=== PATIENT | male | born 1955 | race Caucasian/White ===

== ENCOUNTER 2019-06-17 10:58 | Emergency (ER) | payer BC, SELFPAY ==
[2019-06-17 11:08] VITALS: BP 154/86; PULSE 67; RESP 18; TEMP 36.5; O2SAT 100
--- NOTE | 2019-06-17 11:09 | ED.CHESTPAIN ---
HPI - Chest Pain <Shruthi Lois, DO - Last Filed: 06/22/19 07:51> General Chief Complaint: Chest Pain Stated Complaint: HEART DEFIB WENT OFF Time Seen by Provider: 06/17/19 11:09 Source: patient Mode of arrival: ambulatory Limitations: no limitations History of Present Illness HPI narrative: Patient is a 63-year-old male with history of Lyme disease CHF in and diabetes presenting after his defibrillator went off. He thinks it went off yesterday but not really sure but definitely at 3:00 a.m. he felt a severe shock go from fingertip to finger tip. He said he woke up and was not feeling quite right he felt his pulse and thought it was irregular and then he was being shocked. It did not shock him on again on he the emergency department now for evaluation. He comes no chest pain no shortness of breath no heart palpitations dizziness or lightheadedness. Related Data Home Medications Medication Instructions Recorded Confirmed acetaminophen 500 mg PO Q4H PRN 06/17/19 06/17/19 ascorbate calcium (vitamin C) 500 mg PO DAILY 06/17/19 06/17/19 carvedilol 50 mg PO DAILY 06/17/19 06/17/19 cholecalciferol (vitamin D3) 5,000 unit PO DAILY 06/17/19 06/17/19 [Vitamin D3] coenzyme Q10 200 mg PO DAILY 06/17/19 06/17/19 cyanocobalamin (vitamin B-12) 2,500 mcg SUBLINGUAL DAILY 06/17/19 06/17/19 [Vitamin B-12] duloxetine 60 mg PO DAILY 06/17/19 06/17/19 furosemide 40 mg PO DAILY 06/17/19 06/17/19 gabapentin 1 - 3 tab PO BEDTIME 06/17/19 06/17/19 insulin aspart U-100 [Novolog See Rx Instructions .ROUTE .COMPLEX 06/17/19 06/17/19 Flexpen U-100 Insulin] insulin degludec [Tresiba 10 - 20 unit SUBCUT DAILY 06/17/19 06/17/19 FlexTouch U-200] insulin glargine [Lantus Solostar See Rx Instructions .ROUTE .COMPLEX 06/17/19 06/17/19 U-100 Insulin] lactobacillus comb no.10 20,000 mmu cells PO DAILY 06/17/19 06/17/19 [Probiotic] levocarnitine HCl (bulk) 500 mg DAILY 06/17/19 06/17/19 [Vfgfdf-L-Aibikjhlr] losartan 25 mg PO DAILY 06/17/19 06/17/19 magnesium 250 mg PO DAILY 06/17/19 06/17/19 melatonin 5 mg PO BEDTIME PRN 06/17/19 06/17/19 metaxalone 800 mg PO BID 06/17/19 06/17/19 metformin 2,000 mg PO DAILY 06/17/19 06/17/19 niacin 250 mg PO DAILY 06/17/19 06/17/19 omega 7-shb-lfm-fish oil [Fish Oil] 1 cap PO DAILY 06/17/19 06/17/19 spironolactone 25 mg PO DAILY 06/17/19 06/17/19 thyroid (pork) [CATERING SOUS CHEF Thyroid] 60 mg PO DAILY 06/17/19 06/17/19 vitamin A 10,000 unit PO DAILY 06/17/19 06/17/19 vitamin B complex [B-Complex] 1 tab PO DAILY 06/17/19 06/17/19 Previous Rx's Medication Instructions Recorded clonazepam [Klonopin] 2 mg PO .QHS #6 tab 06/17/19 Allergies Allergy/AdvReac Type Severity Reaction Status Date / Time sulfamethoxazole Allergy Unknown Unverified 03/02/18 11:45 [From BACTRIM] trimethoprim [From BACTRIM] Allergy Unknown Unverified 03/02/18 11:45 Review of Systems <Shruthi Abreu, - Last Filed: 06/22/19 07:51> Review of Systems GENERAL: Denies chills, fatigue, malaise, fever, sweats, travel HEENT: Denies sinus pain, ear pain, sore throat, difficulty swallowing, neck pain RESPIRATORY: Denies dyspnea, cough, wheezing, hemoptysis, sputum. CARDIOVASCULAR: See HPI GASTROINTESTINAL: Denies nausea, vomiting, abdominal pain, diarrhea, constipation, melena. : Denies dysuria, frequency, incontinence, hematuria, urinary retention, flank pain. MUSCULOSKELETAL: Denies weakness, joint pain, or bony pain SKIN: No rash, no erythema, no pruritus NEUROLOGIC: Denies weakness, dizziness, headache, numbness, change in speech, confusion PSYCHIATRIC: No concerning psychosocial issues. 12 point review of systems is negative except for those stated above and HPI PFSH <Shruthi Abreu DO - Last Filed: 06/22/19 07:51> Medical History CHF (congestive heart failure) (Acute) Diabetes (Acute) Lyme disease (Acute) Social History (Updated 06/17/19 @ 19:20 by Shruthi Abreu DO) marital status: household members: spouse Smoking Status: Never smoker Social History marital status: household members: spouse Smoking Status: Never smoker Exam <DO Dari Pacheco Last Filed: 06/22/19 07:51> Initial Vital Signs Initial Vital Signs: Vital Signs Temperature 97.7 F 06/17/19 11:08 Pulse Rate 67 06/17/19 11:08 Respiratory Rate 18 06/17/19 11:08 Blood Pressure 154/86 H 06/17/19 11:08 Pulse Oximetry 100 06/17/19 11:08 GENERAL: Well-appearing, well-nourished and in no acute distress. HEENT: Head atraumatic,EOMI, pupils reactive, face symmetric, moist mucous membranes CARDIOVASCULAR: Regular rate and rhythm without murmurs, rubs or gallops. RESPIRATORY: Breath sounds equal bilaterally, no wheezes rales or rhonchi. ABDOMEN: Soft, nontender. Normoactive bowel sounds all 4 quadrants. No guarding or rebound. EXTREMITIES: Normal range of motion, no clubbing or edema. Neurovascularly intact NEUROLOGICAL: Alert and oriented x4.Normal gait and speech. Cranial nerves II through XII grossly intact. SKIN: Warm, dry, no laceration, no petechiae, no rashes or lesions. <Von Burden DO - Last Filed: 06/17/19 23:53> Initial Vital Signs Initial Vital Signs: Vital Signs Temperature 97.7 F 06/17/19 11:08 Pulse Rate 67 06/17/19 11:08 Respiratory Rate 18 06/17/19 11:08 Blood Pressure 154/86 H 06/17/19 11:08 Pulse Oximetry 100 06/17/19 11:08 Course <Shruthi Abreu DO - Last Filed: 06/22/19 07:51> Orders Ordered: Discontinued Medications Clonazepam (Klonopin) 4 mg PO NOW ONE Stop: 06/17/19 21:23 Last Admin: 06/17/19 21:29 Dose: 4 mg Consultations Time: 12:41 Vital Signs - 8 hr 06/17/19 16:00 06/17/19 18:00 06/17/19 21:31 Pulse Rate 72 76 78 Respiratory Rate 14 14 12 Blood Pressure 168/74 H Blood Pressure [Right Arm] 156/83 H 146/76 H Pulse Oximetry 100 98 98 <Von Burden DO - Last Filed: 06/17/19 23:53> Orders Ordered: Discontinued Medications Clonazepam (Klonopin) 4 mg PO NOW ONE Stop: 06/17/19 21:23 Last Admin: 06/17/19 21:29 Dose: 4 mg Vital Signs - 8 hr 06/17/19 16:00 06/17/19 18:00 06/17/19 21:31 Pulse Rate 72 76 78 Respiratory Rate 14 14 12 Blood Pressure 168/74 H Blood Pressure [Right Arm] 156/83 H 146/76 H Pulse Oximetry 100 98 98 MDM - Chest Pain <Shruthi Abreu DO - Last Filed: 06/22/19 07:51> Lab Data Attestation: I reviewed the patient's lab results. Result diagrams: 06/17/19 11:10 06/17/19 11:10 Lab Results 06/17/19 06/17/19 06/17/19 Range/Units 11:10 11:10 11:10 WBC 6.0 (4.5-11.0) X10^3/uL RBC 4.80 (4.5-5.9) X10^6/uL Hgb 15.0 (13.5-17.5) g/dL Hct 43.1 (41-53) % MCV 89.9 (80-100) fL MCH 31.3 (26-34) PG MCHC 34.9 (30-36) % RDW 13.1 (11.6-14.8) % Plt Count 149 L (150-400) X10^3/uL Neut % (Auto) 42.6 L (50-75) % Lymph % (Auto) 44.5 H (25-40) % [place] % (Auto) 7.3 (3-14) % Eos % (Auto) 4.3 H (2-4) % Baso % (Auto) 1.3 (0-2) % Neut # (Auto) 2600 (8878-7622) /uL Lymph # (Auto) 2700 (5737-2518) /uL [place] # (Auto) 400 (0-900) /uL Eos # (Auto) 300 (0-450) /uL Baso # (Auto) 100 (0-100) /uL PT 12.2 (10.1-12.7) SECONDS INR 1.1 (0.9-1.3) APTT 36 (26.4-36.2) SECONDS Sodium 143 (137-145) mmol/L Potassium 4.2 (3.4-5.1) mmol/L Chloride 104 (98-107) mmol/L Carbon Dioxide 26 (22-32) mmol/L BUN 25 H (9-20) mg/dL Creatinine 1.10 (0.66-1.25) mg/dL Estimated GFR > 60.0 (>60) mL/min BUN/Creatinine Ratio 22.7 H (6-22) Glucose 136 H (80-110) mg/dL Calcium 10.2 (8.4-10.2) mg/dL Total Bilirubin 2.0 H (0.2-1.3) mg/dL AST 53 (17-59) IU/L ALT 49 (21-72) IU/L Alkaline Phosphatase 76 (38-126) U/L Total Creatine Kinase 203 H (55-170) U/L CK-MB (CK-2) 2.53 H (<2.37) ng/mL CK-MB (CK-2) Rel Index 1.2 L (1.5-5.0) % Troponin I < 0.012 (0.01-0.034) ng/mL Total Protein 8.4 H (6.3-8.2) g/dL Albumin 5.1 H (3.5-5.0) g/dL Globulin 3.3 (1.7-4.1) g/dL Albumin/Globulin Ratio 1.5 (1.0-2.8) Lipase 92 (23-300) U/L Imaging Data Chest x-ray: Radiologist's impression: PROCEDURE: XR CHEST 1V INDICATIONS: chest pain TECHNIQUE: One view of the chest was acquired. COMPARISON: None. FINDINGS: Surgical changes and devices: There is a single-lead cardiac defibrillator. Lungs and pleura: Lungs are clear. No pleural effusions or pneumothorax. Mediastinum: Mediastinal contours appear normal. Heart size is normal. Bones and chest wall: No suspicious bony lesions. Overlying soft tissues appear unremarkable. IMPRESSION: No acute cardiopulmonary findings. Dictated by: Abida Pedraza M.D. on 06/17/2019 at 10:27 ECG Data Attestation: I personally reviewed and interpreted this ECG as follows: Prior ECG tracings: not available for review Interpretation: Sinus rhythm rate [address] changes no T-wave inversions or priors to compare MDM Narrative Medical decision making narrative: I personally called [employer] and spoke to the rep requested interrogation. The rep requested that there be a cardiology consult. I spoke with Dr. Silverio, on-call cardiology who yes agrees with interrogation. If something is abnormal with interrogation he is happy to get involved. [employer] will not be here until 7:45 p.m. I have signed out to Dr. Burden for further management <Von Burden, DO - Last Filed: 06/17/19 23:53> Lab Data Lab Results 06/17/19 06/17/19 06/17/19 Range/Units 11:10 11:10 11:10 WBC 6.0 (4.5-11.0) X10^3/uL RBC 4.80 (4.5-5.9) X10^6/uL Hgb 15.0 (13.5-17.5) g/dL Hct 43.1 (41-53) % MCV 89.9 (80-100) fL MCH 31.3 (26-34) PG MCHC 34.9 (30-36) % RDW 13.1 (11.6-14.8) % Plt Count 149 L (150-400) X10^3/uL Neut % (Auto) 42.6 L (50-75) % Lymph % (Auto) 44.5 H (25-40) % [place] % (Auto) 7.3 (3-14) % Eos % (Auto) 4.3 H (2-4) % Baso % (Auto) 1.3 (0-2) % Neut # (Auto) 2600 (9037-3717) /uL Lymph # (Auto) 2700 (1232-8346) /uL [place] # (Auto) 400 (0-900) /uL Eos # (Auto) 300 (0-450) /uL Baso # (Auto) 100 (0-100) /uL PT 12.2 (10.1-12.7) SECONDS INR 1.1 (0.9-1.3) APTT 36 (26.4-36.2) SECONDS Sodium 143 (137-145) mmol/L Potassium 4.2 (3.4-5.1) mmol/L Chloride 104 (98-107) mmol/L Carbon Dioxide 26 (22-32) mmol/L BUN 25 H (9-20) mg/dL Creatinine 1.10 (0.66-1.25) mg/dL Estimated GFR > 60.0 (>60) mL/min BUN/Creatinine Ratio 22.7 H (6-22) Glucose 136 H (80-110) mg/dL Calcium 10.2 (8.4-10.2) mg/dL Total Bilirubin 2.0 H (0.2-1.3) mg/dL AST 53 (17-59) IU/L ALT 49 (21-72) IU/L Alkaline Phosphatase 76 (38-126) U/L Total Creatine Kinase 203 H (55-170) U/L CK-MB (CK-2) 2.53 H (<2.37) ng/mL CK-MB (CK-2) Rel Index 1.2 L (1.5-5.0) % Troponin I < 0.012 (0.01-0.034) ng/mL Total Protein 8.4 H (6.3-8.2) g/dL Albumin 5.1 H (3.5-5.0) g/dL Globulin 3.3 (1.7-4.1) g/dL Albumin/Globulin Ratio 1.5 (1.0-2.8) Lipase 92 (23-300) U/L MDM Narrative Medical decision making narrative: Received turned over from day provider. Reviewed his history and physical and labs. Performed my own independent exam. [employer] did eventually come to the emergency department and interrogate his pacemaker. He does have a VVI pacemaker. There were no reports of activations today. Will not change any of his medications. He was given a short course of Klonopin to help him sleep at night. He was given return precautions and follow-up instructions. Expressed understanding and agreement plan. Discharge Plan Departure Patient Disposition: Home Clinical Impression: Defibrillator discharge, Heart palpitations Discharge Date/Time: 06/17/19 21:32 Interventions: ED Discharge Assessment Last Done: 06/17/19 21:31 Instructions: DI for Automatic Cardioverter/Defibrillator Implantation Activity Restrictions/Additional Instructions: Continue all of your medications as directed. 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 Return to the emergency department for any new or worsening symptoms Prescriptions: New clonazepam [Klonopin] 2 mg tablet 2 mg PO .QHS Qty: 6 RF: 0 No Action furosemide 40 mg tablet 40 mg PO DAILY RF: 0 carvedilol 25 mg tablet 50 mg PO DAILY RF: 0 spironolactone 25 mg tablet 25 mg PO DAILY RF: 0 vitamin A 10,000 unit Capsule 10,000 unit PO DAILY RF: 0 metformin 1,000 mg tablet 2,000 mg PO DAILY RF: 0 losartan 25 mg tablet 25 mg PO DAILY RF: 0 metaxalone 800 mg tablet 800 mg PO BID RF: 0 Novolog Flexpen U-100 Insulin 100 unit/mL (3 mL) insulin pen See Rx Instructions .ROUTE .COMPLEX RF: 0 duloxetine 60 mg capsule,delayed release(DR/EC) 60 mg PO DAILY RF: 0 Lantus Solostar U-100 Insulin 100 unit/mL (3 mL) insulin pen See Rx Instructions .ROUTE .COMPLEX RF: 0 thyroid (pork) [CATERING SOUS CHEF Thyroid] 60 mg tablet 60 mg PO DAILY RF: 0 Tresiba FlexTouch U-200 200 unit/mL (3 mL) insulin pen 10 - 20 unit subcut DAILY RF: 0 cyanocobalamin (vitamin B-12) [Vitamin B-12] 2,500 mcg Tablet, Sublingual 2,500 mcg SUBLINGUAL DAILY RF: 0 gabapentin 800 mg tablet 1 - 3 tab PO BEDTIME RF: 0 ascorbate calcium (vitamin C) 500 mg Tablet 500 mg PO DAILY RF: 0 coenzyme Q10 200 mg Capsule 200 mg PO DAILY RF: 0 melatonin 5 mg Tablet 5 mg PO BEDTIME PRN (Reason: Sleep) RF: 0 cholecalciferol (vitamin D3) [Vitamin D3] 5,000 unit Tablet 5,000 unit PO DAILY RF: 0 vitamin B complex [B-Complex] Tablet 1 tab PO DAILY RF: 0 magnesium 250 mg Tablet 250 mg PO DAILY RF: 0 niacin 250 mg Tablet 250 mg PO DAILY RF: 0 acetaminophen 500 mg Capsule 500 mg PO Q4H PRN (Reason: Pain (Scale Score 4-6)) RF: 0 Lysjpt-P-Bvxwqwfbk Powder 500 mg DAILY RF: 0 omega 6-zpq-wso-fish oil [Fish Oil] 1,000 mg (120 mg-180 mg) Capsule 1 cap PO DAILY RF: 0 Probiotic 20 billion cell Capsule 20,000 mmu cells PO DAILY RF: 0
[2019-06-17 11:28] LABS: INR 1.1 (0.9-1.3); Prothrombin Time 12.2 SECONDS (10.1-12.7)
[2019-06-17 11:31] LABS: Alanine Aminotransferase 49 IU/L (21-72); Albumin 5.1 g/dL (3.5-5.0); Albumin Globulin Ratio 1.5 (1.0-2.8); Alkaline Phosphatase 76 U/L (38-126); Aspartate Aminotransferase 53 IU/L (17-59); BUN Creatinine Ratio 22.7 (6-22); Blood Urea Nitrogen 25 mg/dL (9-20); Calcium 10.2 mg/dL (8.4-10.2); Carbon Dioxide 26 mmol/L (22-32); Chloride 104 mmol/L (98-107); Creatine Kinase 203 U/L (55-170); Estimated Glomerular Filt Rate > 60.0 mL/min (>60); Globulin 3.3 g/dL (1.7-4.1); Glucose 136 mg/dL (80-110); HEMOLYSIS < 15 (0-50); Lipase 92 U/L (23-300); PTT Partial Thromboplastin Tim 36 SECONDS (26.4-36.2); Potassium 4.2 mmol/L (3.4-5.1); Sodium 143 mmol/L (137-145); Total Protein 8.4 g/dL (6.3-8.2)
[2019-06-17 11:37] LABS: Add Manual Diff / Slide Review NO; Basophils Absolute Auto 100 /uL (0-100); Basophils Percent Auto 1.3 % (0-2); Eosinophils Absolute Auto 300 /uL (0-450); Eosinophils Percent Auto 4.3 % (2-4); Hematocrit 43.1 % (41-53); Lymphocytes Absolute Auto 2700 /uL (1100-4500); Lymphocytes Percent Auto 44.5 % (25-40); Mean Corpuscular HGB Conc 34.9 % (30-36); Mean Corpuscular Hemoglobin 31.3 PG (26-34); Mean Corpuscular Volume 89.9 fL (80-100); Monocytes Absolute Auto 400 /uL (0-900); Monocytes Percent Auto 7.3 % (3-14); Neutrophils Absolute Auto 2600 /uL (1500-7000); Neutrophils Percent Auto 42.6 % (50-75); Platelet Count 149 X10^3/uL (150-400); Red Cell Distribution Width 13.1 % (11.6-14.8)
[2019-06-17 11:43] LABS: Troponin I < 0.012 ng/mL (0.01-0.034)
[2019-06-17 11:47] LABS: CKMB % Relative Index 1.2 % (1.5-5.0); Creatine Kinase MB 2.53 ng/mL (<2.37)
[2019-06-17 12:00] VITALS: BP 146/89; PULSE 60; RESP 17; O2SAT 100
--- NOTE | 2019-06-17 12:41 | ED_ITS ---
HPI - Chest Pain <Shruthi Lois, DO - Last Filed: 06/22/19 07:51> General Chief Complaint: Chest Pain Stated Complaint: HEART DEFIB WENT OFF Time Seen by Provider: 06/17/19 11:09 Source: patient Mode of arrival: ambulatory Limitations: no limitations History of Present Illness HPI narrative: Patient is a 63-year-old male with history of Lyme disease CHF in and diabetes presenting after his defibrillator went off. He thinks it went off yesterday but not really sure but definitely at 3:00 a.m. he felt a severe shock go from fingertip to finger tip. He said he woke up and was not feeling quite right he felt his pulse and thought it was irregular and then he was being shocked. It did not shock him on again on he the emergency department now for evaluation. He comes no chest pain no shortness of breath no heart palpitations dizziness or lightheadedness. Related Data Home Medications Medication Instructions Recorded Confirmed acetaminophen 500 mg PO Q4H PRN 06/17/19 06/17/19 ascorbate calcium (vitamin C) 500 mg PO DAILY 06/17/19 06/17/19 carvedilol 50 mg PO DAILY 06/17/19 06/17/19 cholecalciferol (vitamin D3) 5,000 unit PO DAILY 06/17/19 06/17/19 [Vitamin D3] coenzyme Q10 200 mg PO DAILY 06/17/19 06/17/19 cyanocobalamin (vitamin B-12) 2,500 mcg SUBLINGUAL DAILY 06/17/19 06/17/19 [Vitamin B-12] duloxetine 60 mg PO DAILY 06/17/19 06/17/19 furosemide 40 mg PO DAILY 06/17/19 06/17/19 gabapentin 1 - 3 tab PO BEDTIME 06/17/19 06/17/19 insulin aspart U-100 [Novolog See Rx Instructions .ROUTE .COMPLEX 06/17/19 06/17/19 Flexpen U-100 Insulin] insulin degludec [Tresiba 10 - 20 unit SUBCUT DAILY 06/17/19 06/17/19 FlexTouch U-200] insulin glargine [Lantus Solostar See Rx Instructions .ROUTE .COMPLEX 06/17/19 06/17/19 U-100 Insulin] lactobacillus comb no.10 20,000 mmu cells PO DAILY 06/17/19 06/17/19 [Probiotic] levocarnitine HCl (bulk) 500 mg DAILY 06/17/19 06/17/19 [Dlvyqi-E-Ubjnogqqe] losartan 25 mg PO DAILY 06/17/19 06/17/19 magnesium 250 mg PO DAILY 06/17/19 06/17/19 melatonin 5 mg PO BEDTIME PRN 06/17/19 06/17/19 metaxalone 800 mg PO BID 06/17/19 06/17/19 metformin 2,000 mg PO DAILY 06/17/19 06/17/19 niacin 250 mg PO DAILY 06/17/19 06/17/19 omega 7-bly-sas-fish oil [Fish Oil] 1 cap PO DAILY 06/17/19 06/17/19 spironolactone 25 mg PO DAILY 06/17/19 06/17/19 thyroid (pork) [LOSS CONTROL TECHNICIAN Thyroid] 60 mg PO DAILY 06/17/19 06/17/19 vitamin A 10,000 unit PO DAILY 06/17/19 06/17/19 vitamin B complex [B-Complex] 1 tab PO DAILY 06/17/19 06/17/19 Previous Rx's Medication Instructions Recorded clonazepam [Klonopin] 2 mg PO .QHS #6 tab 06/17/19 Allergies Allergy/AdvReac Type Severity Reaction Status Date / Time sulfamethoxazole Allergy Unknown Unverified 03/02/18 11:45 [From BACTRIM] trimethoprim [From BACTRIM] Allergy Unknown Unverified 03/02/18 11:45 Review of Systems <Shruthi Abreu, - Last Filed: 06/22/19 07:51> Review of Systems GENERAL: Denies chills, fatigue, malaise, fever, sweats, travel HEENT: Denies sinus pain, ear pain, sore throat, difficulty swallowing, neck pain RESPIRATORY: Denies dyspnea, cough, wheezing, hemoptysis, sputum. CARDIOVASCULAR: See HPI GASTROINTESTINAL: Denies nausea, vomiting, abdominal pain, diarrhea, constipati on, melena. : Denies dysuria, frequency, incontinence, hematuria, urinary retention, flank pain. MUSCULOSKELETAL: Denies weakness, joint pain, or bony pain SKIN: No rash, no erythema, no pruritus NEUROLOGIC: Denies weakness, dizziness, headache, numbness, change in speech, confusion PSYCHIATRIC: No concerning psychosocial issues. 12 point review of systems is negative except for those stated above and HPI PFSH <Shruthi Abreu DO - Last Filed: 06/22/19 07:51> Medical History CHF (congestive heart failure) (Acute) Diabetes (Acute) Lyme disease (Acute) Social History (Updated 06/17/19 @ 19:20 by Shruthi Abreu DO) marital status: household members: spouse Smoking Status: Never smoker Social History marital status: household members: spouse Smoking Status: Never smoker Exam <DO Dari Pacheco Last Filed: 06/22/19 07:51> Initial Vital Signs Initial Vital Signs: Vital Signs Temperature 97.7 F 06/17/19 11:08 Pulse Rate 67 06/17/19 11:08 Respiratory Rate 18 06/17/19 11:08 Blood Pressure 154/86 H 06/17/19 11:08 Pulse Oximetry 100 06/17/19 11:08 GENERAL: Well-appearing, well-nourished and in no acute distress. HEENT: Head atraumatic,EOMI, pupils reactive, face symmetric, moist mucous membranes CARDIOVASCULAR: Regular rate and rhythm without murmurs, rubs or gallops. RESPIRATORY: Breath sounds equal bilaterally, no wheezes rales or rhonchi. ABDOMEN: Soft, nontender. Normoactive bowel sounds all 4 quadrants. No guarding or rebound. EXTREMITIES: Normal range of motion, no clubbing or edema. Neurovascularly intact NEUROLOGICAL: Alert and oriented x4.Normal gait and speech. Cranial nerves II through XII grossly intact. SKIN: Warm, dry, no laceration, no petechiae, no rashes or lesions. <Von Burden DO - Last Filed: 06/17/19 23:53> Initial Vital Signs Initial Vital Signs: Vital Signs Temperature 97.7 F 06/17/19 11:08 Pulse Rate 67 06/17/19 11:08 Respiratory Rate 18 06/17/19 11:08 Blood Pressure 154/86 H 06/17/19 11:08 Pulse Oximetry 100 06/17/19 11:08 Course <Shruthi Abreu DO - Last Filed: 06/22/19 07:51> Orders Ordered: Discontinued Medications Clonazepam (Klonopin) 4 mg PO NOW ONE Stop: 06/17/19 21:23 Last Admin: 06/17/19 21:29 Dose: 4 mg Consultations Time: 12:41 Vital Signs - 8 hr 06/17/19 16:00 06/17/19 18:00 06/17/19 21:31 Pulse Rate 72 76 78 Respiratory Rate 14 14 12 Blood Pressure 168/74 H Blood Pressure [Right Arm] 156/83 H 146/76 H Pulse Oximetry 100 98 98 <Von Burden DO - Last Filed: 06/17/19 23:53> Orders Ordered: Discontinued Medications Clonazepam (Klonopin) 4 mg PO NOW ONE Stop: 06/17/19 21:23 Last Admin: 06/17/19 21:29 Dose: 4 mg Vital Signs - 8 hr 06/17/19 16:00 06/17/19 18:00 06/17/19 21:31 Pulse Rate 72 76 78 Respiratory Rate 14 14 12 Blood Pressure 168/74 H Blood Pressure [Right Arm] 156/83 H 146/76 H Pulse Oximetry 100 98 98 MDM - Chest Pain <Shruthi Abreu DO - Last Filed: 06/22/19 07:51> Lab Data Attestation: I reviewed the patient's lab results. Result diagrams: 06/17/19 11:10 06/17/19 11:10 Lab Results 06/17/19 06/17/19 06/17/19 Range/Units 11:10 11:10 11:10 WBC 6.0 (4.5-11.0) X10^3/uL RBC 4.80 (4.5-5.9) X10^6/uL Hgb 15.0 (13.5-17.5) g/dL Hct 43.1 (41-53) % MCV 89.9 (80-100) fL MCH 31.3 (26-34) PG MCHC 34.9 (30-36) % RDW 13.1 (11.6-14.8) % Plt Count 149 L (150-400) X10^3/uL Neut % (Auto) 42.6 L (50-75) % Lymph % (Auto) 44.5 H (25-40) % Page % (Auto) 7.3 (3-14) % Eos % (Auto) 4.3 H (2-4) % Baso % (Auto) 1.3 (0-2) % Neut # (Auto) 2600 (8628-6775) /uL Lymph # (Auto) 2700 (9206-3354) /uL Page # (Auto) 400 (0-900) /uL Eos # (Auto) 300 (0-450) /uL Baso # (Auto) 100 (0-100) /uL PT 12.2 (10.1-12.7) SECONDS INR 1.1 (0.9-1.3) APTT 36 (26.4-36.2) SECONDS Sodium 143 (137-145) mmol/L Potassium 4.2 (3.4-5.1) mmol/L Chloride 104 (98-107) mmol/L Carbon Dioxide 26 (22-32) mmol/L BUN 25 H (9-20) mg/dL Creatinine 1.10 (0.66-1.25) mg/dL Estimated GFR > 60.0 (>60) mL/min BUN/Creatinine Ratio 22.7 H (6-22) Glucose 136 H (80-110) mg/dL Calcium 10.2 (8.4-10.2) mg/dL Total Bilirubin 2.0 H (0.2-1.3) mg/dL AST 53 (17-59) IU/L ALT 49 (21-72) IU/L Alkaline Phosphatase 76 (38-126) U/L Total Creatine Kinase 203 H (55-170) U/L CK-MB (CK-2) 2.53 H (<2.37) ng/mL CK-MB (CK-2) Rel Index 1.2 L (1.5-5.0) % Troponin I < 0.012 (0.01-0.034) ng/mL Total Protein 8.4 H (6.3-8.2) g/dL Albumin 5.1 H (3.5-5.0) g/dL Globulin 3.3 (1.7-4.1) g/dL Albumin/Globulin Ratio 1.5 (1.0-2.8) Lipase 92 (23-300) U/L Imaging Data Chest x-ray: Radiologist's impression: PROCEDURE: XR CHEST 1V INDICATIONS: chest pain TECHNIQUE: One view of the chest was acquired. COMPARISON: None. FINDINGS: Surgical changes and devices: There is a single-lead cardiac defibrillator. Lungs and pleura: Lungs are clear. No pleural effusions or pneumothorax. Mediastinum: Mediastinal contours appear normal. Heart size is normal. Bones and chest wall: No suspicious bony lesions. Overlying soft tissues appear unremarkable. IMPRESSION: No acute cardiopulmonary findings. Dictated by: Abida Pedraza M.D. on 06/17/2019 at 10:27 ECG Data Attestation: I personally reviewed and interpreted this ECG as follows: Prior ECG tracings: not available for review Interpretation: Sinus rhythm rate [address] changes no T-wave inversions or priors to compare MDM Narrative Medical decision making narrative: I personally called [employer] and spoke to the rep requested interrogation. The rep requested that there be a cardiology consult. I spoke with Dr. Silverio, on-call cardiology who yes agrees with interrogation. If something is abnormal with interrogation he is happy to get involved. [employer] will not be here until 7:45 p.m. I have signed out to Dr. Burden for further management <Von Burden, DO - Last Filed: 06/17/19 23:53> Lab Data Lab Results 06/17/19 06/17/19 06/17/19 Range/Units 11:10 11:10 11:10 WBC 6.0 (4.5-11.0) X10^3/uL RBC 4.80 (4.5-5.9) X10^6/uL Hgb 15.0 (13.5-17.5) g/dL Hct 43.1 (41-53) % MCV 89.9 (80-100) fL MCH 31.3 (26-34) PG MCHC 34.9 (30-36) % RDW 13.1 (11.6-14.8) % Plt Count 149 L (150-400) X10^3/uL Neut % (Auto) 42.6 L (50-75) % Lymph % (Auto) 44.5 H (25-40) % Page % (Auto) 7.3 (3-14) % Eos % (Auto) 4.3 H (2-4) % Baso % (Auto) 1.3 (0-2) % Neut # (Auto) 2600 (2477-1568) /uL Lymph # (Auto) 2700 (8169-9764) /uL Page # (Auto) 400 (0-900) /uL Eos # (Auto) 300 (0-450) /uL Baso # (Auto) 100 (0-100) /uL PT 12.2 (10.1-12.7) SECONDS INR 1.1 (0.9-1.3) APTT 36 (26.4-36.2) SECONDS Sodium 143 (137-145) mmol/L Potassium 4.2 (3.4-5.1) mmol/L Chloride 104 (98-107) mmol/L Carbon Dioxide 26 (22-32) mmol/L BUN 25 H (9-20) mg/dL Creatinine 1.10 (0.66-1.25) mg/dL Estimated GFR > 60.0 (>60) mL/min BUN/Creatinine Ratio 22.7 H (6-22) Glucose 136 H (80-110) mg/dL Calcium 10.2 (8.4-10.2) mg/dL Total Bilirubin 2.0 H (0.2-1.3) mg/dL AST 53 (17-59) IU/L ALT 49 (21-72) IU/L Alkaline Phosphatase 76 (38-126) U/L Total Creatine Kinase 203 H (55-170) U/L CK-MB (CK-2) 2.53 H (<2.37) ng/mL CK-MB (CK-2) Rel Index 1.2 L (1.5-5.0) % Troponin I < 0.012 (0.01-0.034) ng/mL Total Protein 8.4 H (6.3-8.2) g/dL Albumin 5.1 H (3.5-5.0) g/dL Globulin 3.3 (1.7-4.1) g/dL Albumin/Globulin Ratio 1.5 (1.0-2.8) Lipase 92 (23-300) U/L [facility] Narrative Medical decision making narrative: Received turned over from day provider. Reviewed his history and physical and labs. Performed my own independent exam. [employer] did eventually come to the emergency department and interrogate his pacemaker. He does have a VVI pacemaker. There were no reports of activations today. Will not change any of his medications. He was given a short course of Klonopin to help him sleep at night. He was given return precautions and fol low-up instructions. Expressed understanding and agreement plan. Discharge Plan Departure Patient Disposition: Home Clinical Impression: Defibrillator discharge, Heart palpitations Discharge Date/Time: 06/17/19 21:32 Interventions: ED Discharge Assessment Last Done: 06/17/19 21:31 Instructions: DI for Automatic Cardioverter/Defibrillator Implantation Activity Restrictions/Additional Instructions: Continue all of your medications as directed. Contact your primary provider and your pro shop attendant to discuss follow-up. Return to the emergency department for any new or worsening symptoms Prescriptions: New clonazepam [Klonopin] 2 mg tablet 2 mg PO .QHS Qty: 6 RF: 0 No Action furosemide 40 mg tablet 40 mg PO DAILY RF: 0 carvedilol 25 mg tablet 50 mg PO DAILY RF: 0 spironolactone 25 mg tablet 25 mg PO DAILY RF: 0 vitamin A 10,000 unit Capsule 10,000 unit PO DAILY RF: 0 metformin 1,000 mg tablet 2,000 mg PO DAILY RF: 0 losartan 25 mg tablet 25 mg PO DAILY RF: 0 metaxalone 800 mg tablet 800 mg PO BID RF: 0 Novolog Flexpen U-100 Insulin 100 unit/mL (3 mL) insulin pen See Rx Instructions .ROUTE .COMPLEX RF: 0 duloxetine 60 mg capsule,delayed release(DR/EC) 60 mg PO DAILY RF: 0 Lantus Solostar U-100 Insulin 100 unit/mL (3 mL) insulin pen See Rx Instructions .ROUTE .COMPLEX RF: 0 thyroid (pork) [LOSS CONTROL TECHNICIAN Thyroid] 60 mg tablet 60 mg PO DAILY RF: 0 Tresiba FlexTouch U-200 200 unit/mL (3 mL) insulin pen 10 - 20 unit subcut DAILY RF: 0 cyanocobalamin (vitamin B-12) [Vitamin B-12] 2,500 mcg Tablet, Sublingual 2,500 mcg SUBLINGUAL DAILY RF: 0 gabapentin 800 mg tablet 1 - 3 tab PO BEDTIME RF: 0 ascorbate calcium (vitamin C) 500 mg Tablet 500 mg PO DAILY RF: 0 coenzyme Q10 200 mg Capsule 200 mg PO DAILY RF: 0 melatonin 5 mg Tablet 5 mg PO BEDTIME PRN (Reason: Sleep) RF: 0 cholecalciferol (vitamin D3) [Vitamin D3] 5,000 unit Tablet 5,000 unit PO DAILY RF: 0 vitamin B complex [B-Complex] Tablet 1 tab PO DAILY RF: 0 magnesium 250 mg Tablet 250 mg PO DAILY RF: 0 niacin 250 mg Tablet 250 mg PO DAILY RF: 0 acetaminophen 500 mg Capsule 500 mg PO Q4H PRN (Reason: Pain (Scale Score 4-6)) RF: 0 Ixoidi-C-Wammfnsgo Powder 500 mg DAILY RF: 0 omega 4-ros-szc-fish oil [Fish Oil] 1,000 mg (120 mg-180 mg) Capsule 1 cap PO DAILY RF: 0 Probiotic 20 billion cell Capsule 20,000 mmu cells PO DAILY RF: 0
[2019-06-17 16:00] VITALS: BP 156/83; PULSE 72; RESP 14; O2SAT 100
[2019-06-17 18:00] VITALS: BP 146/76; PULSE 76; RESP 14; O2SAT 98
[2019-06-17] MEDS: clonazePAM 0.5 MG TABLET 4 MG PO (21:29)
[2019-06-17 21:31] VITALS: BP 168/74; PULSE 78; RESP 12; O2SAT 98
== END 2019-06-17 21:32 | disposition home or self-care (01) ==
PROVIDERS: Emergency Medicine; Emergency Provider Emergency Medicine
DX: R00.2 Palpitations (principal); Z45.02 Encounter for adjustment and management of automatic implantable cardiac defibrillator
CPT/HCPCS: 36591; 71045; 80053; 82550; 82553; 83690; 84484; 85025; 85610; 85730; 93005; 93041; 99283; 99285

== ENCOUNTER → 2024-08-21 14:12 | Outpatient (CLI) | payer BC, SELFPAY ==
--- NOTE | 2024-08-21 14:14 | DI.RAD.S_ITS ---
PROCEDURE: XR CHEST 2V INDICATIONS: chronic cough TECHNIQUE: 2 views of the chest were acquired. COMPARISON: [facility], CR, XR CHEST 1V, 06/17/2019, 11:15. FINDINGS: Heart, mediastinum and pulmonary vascular: Heart is normal in size and configuration. AICD device in stable satisfactory position. No complication Mediastinum is unremarkable. Pulmonary vascular is normal. Lungs: 2 nodular densities have developed in the right mid lun.2 cm overlying the anterior right 3rd rib and 0.6 cm overlying the anterior 4th rib. Th they are relatively dense and may represent partially calcified granulomas. They will require CT evaluation Pleural spaces: Normal-no effusions or pneumothorax. Bones and soft tissues: Normal IMPRESSION: Two new nodules right mid lung. Suggest chest CT Dictated by: Prashant Lorenzo M.D. on 08/22/2024 at 10:06 Approved by: Prashant Lorenzo M.D. on 08/22/2024 at 10:08
[2024-08-21 15:16] LABS: Add Manual Diff / Slide Review NO; Basophils Absolute Auto 100 /uL (0-100); Basophils Percent Auto 1.6 % (0-2); Eosinophils Absolute Auto 200 /uL (0-450); Eosinophils Percent Auto 4.3 % (2-4); Hematocrit 46.8 % (41-53); Hemoglobin 15.9 g/dL (13.5-17.5); Lymphocytes Absolute Auto 1700 /uL (1100-4500); Mean Corpuscular Hemoglobin 30.8 PG (26-34); Mean Corpuscular Volume 90.5 fL (80-100); Monocytes Absolute Auto 300 /uL (0-900); Monocytes Percent Auto 6.6 % (3-14); Neutrophils Absolute Auto 2900 /uL (1500-7000); Neutrophils Percent Auto 55.5 % (50-75); Platelet Count 132 X10^3/uL (150-400); Red Blood Cell Count 5.18 X10^6/uL (4.5-5.9); Red Cell Distribution Width 13.1 % (11.6-14.8); White Blood Cell Count 5.3 X10^3/uL (4.5-11.0)
[2024-08-21 15:42] LABS: Alanine Aminotransferase 34 IU/L (<50); Albumin 4.6 g/dL (3.5-5.0); Albumin Globulin Ratio 1.4 (1.0-2.8); Alkaline Phosphatase 91 U/L (38-126); Aspartate Aminotransferase 37 IU/L (17-59); BUN Creatinine Ratio 18.4 (6-22); Bilirubin Total 2.4 mg/dL (0.2-1.3); Blood Urea Nitrogen 21 mg/dL (9-20); Calcium 10.2 mg/dL (8.4-10.2); Carbon Dioxide 28 mmol/L (22-32); Chloride 104 mmol/L (98-107); Cholesterol 209 mg/dL (140-199); Estimated Glomerular Filt Rate > 60 mL/min (>60); Globulin 3.3 g/dL (1.7-4.1); Glucose 193 mg/dL (80-110); HDL Cholesterol 36 mg/dL (40-60); HEMOLYSIS < 15 (0-50); LDL Cholesterol Calculated 134 mg/dL (<100); Sodium 141 mmol/L (137-145); Total Protein 7.9 g/dL (6.3-8.2); Triglycerides 195 mg/dL (35-150)
[2024-08-21 15:50] LABS: Microalbumin Urine Random 5.3 mg/dL (0-1.6)
[2024-08-21 15:50] LABS: NT-proBNP (BNP-Adult 18+) 959 pg/mL (<125)
[2024-08-21 16:12] LABS: TSH w/ Reflex to FT4 1.59 uIU/mL (0.47-4.68)
[2024-08-21 16:30] LABS: Hep C Virus Ab w/Reflex Quant NEGATIVE s/c (NEGATIVE)
== END ==
PROVIDERS: PCP Family Medicine; Referring Provider Family Medicine; Visit Provider Family Medicine
DX: R91.8 Other nonspecific abnormal finding of lung field (principal); R05.3 Chronic cough; E11.9 Type 2 diabetes mellitus without complications; I42.8 Other cardiomyopathies; I50.9 Heart failure, unspecified; I11.0 Hypertensive heart disease with heart failure; Z11.59 Encounter for screening for other viral diseases; E03.9 Hypothyroidism, unspecified
CPT/HCPCS: 36415; 71046; 80053; 80061; 82043; 82570; 83880; 84443; 85025; 86803

== ENCOUNTER → 2024-09-27 11:21 | Outpatient (CLI) | payer BC, SELFPAY ==
--- NOTE | 2024-09-27 11:22 | DI.CT.S_ITS ---
PROCEDURE: CT CHEST WO CON INDICATIONS: Two new nodules right mid lung on 08/21 CXR TECHNIQUE: Noncontrast 2.0-2.5 mm thick sections acquired from the pulmonary apices to the posterior costophrenic angles. 7 mm thick axial MIP and 5 mm coronal and sagittal reformats were then acquired. For radiation dose reduction, the following was used: automated exposure control, adjustment of mA and/or kV according to patient size. COMPARISON: [facility], CR, XR CHEST 2V, 08/21/2024, 14:24. FINDINGS: Image quality: Diagnostic. Lower Neck: No enlarged lymph nodes. Thyroid: No thyroid nodules which require sonographic follow up, per consensus guidelines. Axillae: No enlarged lymph nodes. Chest Wall: Left chest wall pacemaker is seen. Bones: Unremarkable. Lungs and Pleura: No pneumothorax or pleural effusions. No consolidations. 9 x 6 mm oval nodule adjacent to anterior pleura of right upper lobe series 3, image 146. 1.4 x 0.9 cm oval nodule also seen adjacent to anterior pleura of right upper lobe near apex. 2 nodular thickening adjacent to anterior pleura of left upper lobe is also noted and measures 4 mm in size series 3, image 132. 3 mm subpleural nodule is seen in anterior aspect of left upper lobe series 3, image 146. Heart: Heart size is normal. No pericardial effusion. Pacemaker lead is in the right ventricle. Thoracic Vessels: The aorta and pulmonary arteries demonstrate normal size. 2 vessel coronary artery atherosclerotic calcifications are seen. Mediastinum and Debra: No enlarged lymph nodes. Esophagus: No wall thickening. No hiatal hernia. Upper Abdomen: Visualized upper abdomen solid organs and bowel loops appear normal. Tiny calcified gallstones are seen without gallbladder wall thickening. IMPRESSION: 1. Multiple pleural based nodular densities in anterior aspect of right upper lobe and left upper lobe as described above. 3 mm subpleural nodule also seen in anterior aspect of left upper lobe. Finding may represent noncalcified pleural plaques versus other type of pulmonary nodules. Short-term CT chest follow-up in 3 months is recommended. 2. Bilateral lungs are otherwise clear. No mediastinal or hilar lymphadenopathy. 3. Moderate 2 vessel coronary artery atherosclerotic calcifications. Left chest wall pacemaker in place. 4. Cholelithiasis without CT evidence of acute cholecystitis. Fleischner Society criteria for SOLID lung nodule followup. Nodule size (mm)Low-risk patientHigh-risk patient<6 (single or multiple)No routine followup.Optional CT at 12 months. 6-8 (single or multiple)CT at 6-12 months, then optional CT at 18-24 mo.CT at 6-12 months, then CT at 18-24 months. >8 (single)CT at 3 months, PET-CT, or biopsy. Same as for low-risk pts. >8 (multiple)CT at 3-6 months, then optional CT at 18-24 mo.CT at 3-6 months, then CT at 18-24 months. Fleischner Society criteria for SUB-SOLID lung nodule followup. Solitary pure ground-glass nodules<6 mm (ground glass or part solid)No followup needed. 6 mm or larger (ground glass)CT at 6-12 months to confirm persistence, then CT every 2 years until 5 years.6 mm or larger (part solid)CT at 3-6 months to confirm persistence, then annual CT until 5 years if unchanged and solid component remains <6 mm. Multiple sub-solid nodules<6 mmCT at 3-6 months, then CT consider at 2 & 4 years for high risk patients. [address] at 3-6 months. Subsequent management based on most suspicious lesions. Recommendations do not apply to lung cancer screening, patients with immunosuppression, or patients with known primary cancer. Dictated by: Kelvin Amaya M.D. on 09/27/2024 at 16:13 Approved by: Kelvin Amaya M.D. on 09/27/2024 at 16:26
== END ==
PROVIDERS: PCP Family Medicine; Referring Provider Family Medicine; Visit Provider Family Medicine
DX: R91.8 Other nonspecific abnormal finding of lung field (principal); R05.3 Chronic cough; K80.20 Calculus of gallbladder without cholecystitis without obstruction; I25.10 Atherosclerotic heart disease of native coronary artery without angina pectoris; Z95.0 Presence of cardiac pacemaker
CPT/HCPCS: 71250

== ENCOUNTER 2024-11-30 14:59 | Emergency (ER) | payer BC, SELFPAY ==
[2024-11-30 15:03] VITALS: BP 107/69; PULSE 99; RESP 18; TEMP 38.2; O2SAT 97; BMI 24.4
--- NOTE | 2024-11-30 15:19 | EKG_ITS ---
[id number] [place] [address] Test Date: 2024-11-30 Pat Name: Chidi George Department: Room: Gender: Male Sample Display Preparer: ZAID : [id number] Requested By: Order Number: [id number] Reading MD: Prashant Campbell MD Measurements Intervals [place] Rate: 100 P: 43 OR: 180 QRS: 12 QRSD: 106 T: 9 QT: 354 QTc: 456 Interpretive Statements Normal sinus rhythm Incomplete left bundle branch block Minimal voltage criteria for LVH, may be normal variant ( Brodie product ) Nonspecific ST and T wave abnormality Electronically Signed On 11-30-2024 16:26:06 PST by Prashant Campbell MD
--- NOTE | 2024-11-30 15:28 | ED.URI ---
HPI - URI/Sore Throat <Maisha Navarrete PA-C - Last Filed: 11/30/24 17:54> General Chief Complaint: Upper Respiratory Symptoms Stated Complaint: dizziness, fever Time Seen by Provider: 11/30/24 15:27 Source: patient Mode of arrival: Wheelchair History of Present Illness HPI Narrative: 69-year-old male presents with what he describes as ?worse than average vertigo on and off for the last 4 months.He was initially seen this afternoon at our walk-in clinic but was referred to the emergency department for evaluation. Patient states that he also thinks he might have COVID as he felt feverish over the last couple of hours. Apparently he was on a flight last WednesdayNovember 25 when he ?sat next to a sick person?. He was not wearing a mask. He reports no cough, difficulty breathing, chest pain, changes in his vision, headache, nasal congestion, ear fullness or sinus pressure, teeth pain, he is vaccinated for COVID with 2 boosters but no influenza vaccine this season. He has a patient of Dr. Lloyd whom he last saw October 13, 2024. Has a history of remote CHF, pulmonary nodules found on CT scanned, sleep disturbance which he takes clonazepam, melatonin and gabapentin as well as Cymbalta, hypertension, hypothyroid. He also has hypertension, diabetes mellitus type 2 which he has been taking Farxiga (dapagliflozin) 10 mg at bedtime for the last year along with insulin. He has continuous glucose monitoring which shows an average of 170 over the last 7 days, currently his sensor is broken and he is unable to tell me what his glucose his right now. He clarifies the dizziness as a fall sensation of movement at times sometimes he loses his balance leaning more so to the left than the right and sometimes the room spins. He reports no changes in his vision though he did lose his prescription glasses 3 weeks ago. He does endorse what he describes as a temporal headache that comes and goes and has been for the last 4 months as well. He has currently not having it now. He also endorses some soreness to his sinuses but no pain per se. No changes in his hearing, no tinnitus. Lastly he states he had Lyme undiagnosed about 40 years ago and ?it has killed my heart?. He denies any CO, however he has been seeking experimental stem-cell treatment in [place] from donor cord blood, with a doctor from [place] who apparently has a head and neck specialist now certified and stem cell therapy. He states ?it has been helping?. Review of his records indicate nonischemic cardiomyopathy, CHF but he only takes half 10 mg Lasix at bedtime, thrombocytopenia, he does have a pacemaker with an internal defibrillator but he reports that it was mainly just for the defibrillator ?just in case?. Records also shows some pulmonary nodule seen on CT scan in September 2024 with a recommendation of a repeat scan in 3 months' time. History also includes chlamydial pneumonia, mycoplasma pneumonia and Tricia bar virus infection as well as chronic back pain. Per Dr. Lloyd's note dated August 15, 2024 there were some medical records from [place] where he resides half time and was seen by Cardiology with an known ejection fraction of 36%. Patient states this is likely from his previous Lyme. Also noted was a chronic cough with a mention of remote emphysema in these records based on this medical note. Only other surgery is low back surgery that occurred when he was age 17 following a lifting accident. All other systems are reviewed and are negative. Related Data Home Medications Medication Instructions Recorded Confirmed acetaminophen 500 mg capsule 500 mg PO Q4H PRN Pain (Scale 06/17/19 10/11/24 Score 4-6) ascorbate calcium (vitamin C) 500 500 mg PO DAILY 06/17/19 10/11/24 mg tablet carvedilol 25 mg tablet 50 mg PO DAILY 06/17/19 10/11/24 cholecalciferol (vitamin D3) 125 5,000 unit PO DAILY 06/17/19 10/11/24 mcg (5,000 unit) tablet (Vitamin D3) cyanocobalamin (vitamin B-12) 2,500 mcg sublingual DAILY 06/17/19 10/11/24 2,500 mcg sublingual tablet (Vitamin B-12) furosemide 40 mg tablet 40 mg PO DAILY 06/17/19 10/11/24 lactobacillus comb no.10 20 20,000 mmu cells PO DAILY 06/17/19 10/11/24 billion cell capsule (Probiotic) losartan 25 mg tablet 25 mg PO DAILY 06/17/19 10/11/24 magnesium 250 mg tablet 250 mg PO DAILY 06/17/19 10/11/24 melatonin 5 mg tablet 5 mg PO BEDTIME PRN Sleep 06/17/19 10/11/24 omega [id number]-nms-ddh-fish oil 1,000 mg 1 cap PO DAILY 06/17/19 10/11/24 (120 mg-180 mg) capsule (Fish Oil) spironolactone 25 mg tablet 25 mg PO DAILY 06/17/19 10/11/24 thyroid (pork) 60 mg tablet 60 mg PO DAILY 06/17/19 10/11/24 vitamin A 3,000 mcg (10,000 unit) 10,000 unit PO DAILY 06/17/19 10/11/24 capsule vitamin B complex (B-Complex 1 tab PO DAILY 06/17/19 10/11/24 tablet) duloxetine [Cymbalta] 90 mg PO 10/11/24 10/11/24 Previous Rx's Medication Instructions Recorded clonazepam 2 mg tablet (Klonopin) 2 mg PO .QHS #6 tabs 06/17/19 duloxetine 30 mg capsule,delayed 30 mg PO DAILY #90 caps 09/21/24 release duloxetine 60 mg capsule,delayed 60 mg PO DAILY #90 caps 09/21/24 release insulin aspart U-100 100 unit/mL 10 unit (0.1 mL) SUBCUT QAC #30 mL 09/21/24 (3 mL) subcutaneous pen dapagliflozin propanediol 10 mg 10 mg PO DAILY #90 tabs 09/28/24 tablet (Farxiga) gabapentin 800 mg tablet 2,400 mg (3 x 800 mg) PO BEDTIME 09/28/24 #90 tabs blood-glucose sensor (Dexcom G7 #9 ea 10/02/24 Sensor device) insulin glargine U-300 conc 300 70 unit (0.2333 mL) SUBCUT DAILY 10/02/24 unit/mL (3 mL) subcutaneous pen #18 mL (Toujeo Max U-300 SoloStar) amoxicillin 875 mg-potassium 1 tab PO BID 7 days #14 tabs 11/30/24 clavulanate 125 mg tablet Allergies Allergy/AdvReac Type Severity Reaction Status Date / Time sulfamethoxazole Allergy Unknown Verified 11/30/24 15:18 [From BACTRIM] trimethoprim [From BACTRIM] Allergy Unknown Verified 11/30/24 15:18 general anesthesia AdvReac Intermediate enlarged Uncoded 11/30/24 15:18 prostate Review of Systems <Maisha Navarrete PA-C - Last Filed: 11/30/24 17:54> Review of Systems Narrative: All other systems reviewed and are negative. Patient History <Maisha Navarrete PA-C - Last Filed: 11/30/24 17:54> Medical History History of Tricia-Lopez virus infection Chlamydial pneumonia Sleep apnea (~2009) Abnormal chest xray (~2021) Depression ADHD Shoulder pain (~2022) Chronic back pain (~1977) Mumps (~1959) Measles (~1959) Chicken pox (~1959) Low platelet count Liver disease Hemorrhoid (~1999) Low testosterone Hypothyroidism Pacemaker (~2013) Hypertension (~1979) Skin cancer (~1994) Melanoma (~1999) CHF (congestive heart failure) Diabetes Lyme disease (~1965) Surgical History Anesthesia History of laminectomy (~1970) Family History Father Cancer Mother Cancer Hypertension Mental health problem Grandfather History of heart disease Stroke Grandfather History of heart disease Stroke Grandfather History of heart disease Grandmother History of heart disease Social History marital status: household members: spouse Smoking Status: Never smoker Smoking Status: Never smoker alcohol intake frequency: holidays/special occasions only Exam <Maisha Navarrete PA-C - Last Filed: 11/30/24 17:54> Initial Vital Signs Initial Vital Signs: Vital Signs Temperature 100.8 F H 11/30/24 15:03 Pulse Rate 99 H 11/30/24 15:03 Respiratory Rate 18 11/30/24 15:03 Blood Pressure 107/69 11/30/24 15:03 Pulse Oximetry 97 11/30/24 15:03 Oxygen Delivery Method Room Air 11/30/24 15:03 Vital signs reviewed and are normal except for temperature of 100.8?. Const General: cooperative, comfortable, well developed, well groomed and No acute distress HENFL Head: normal to inspection, normocephalic and atraumatic Ears: hearing grossly normal bilaterally, external ears normal, TM's normal bilaterally (Mild serous fluid bilaterally, no obstruction of bony landmarks. No bulge. ), EAC's normal, mastoids normal and no periauricular adenopathy Nose: external nose normal, nares normal and nasal mucous membranes and turbinates normal Face and sinus: normal facial exam and sinus tenderness maxillary (left side without swelling or guarding) Mouth: oral mucosae normal, lip normal, tongue normal and oropharynx normal Teeth and gingiva: dentition normal and gingiva normal Throat: posterior oropharynx normal, tonsils normal and uvula midline Eyes General: Yes appearance normal, both eyes and all related structures Visual Mercedes: normal visual mercedes by confrontation Alignment and Position: alignment normal and position normal Periorbital: periorbital findings normal Eyelids: eyelids normal Conjunctivae: conjunctivae normal Sclera: sclerae normal Pupils: PERRL and normal by confrontation EOM: EOM intact bilaterally and No nystagmus Other: No reproducible symptoms of his vertigo with EOMs Neck Neck: normal visual inspection, full ROM, no meningeal signs and supple Lymphatic: No lymphadenopathy Chest Chest: normal inspection of the chest and pacemaker Resp Effort & Inspection: normal respiratory effort and able to speak in complete sentences Auscultation: clear to auscultation bilaterally, no rales, no rhonchi and no wheezes Cardio Rate: regular rate Rhythm: regular rhythm GI Inspection: normal to inspection, no edema and non-distended Palpation: soft and no hepatosplenomegaly Percussion: normal to percussion Auscultation: normal bowel sounds Skin General: no rashes or lesions noted Neuro Cranial Nerves: CN's II-XI intact bilaterally and No nystagmus Cognition: normal cognition Speech: speech normal Gait: normal gait, not antalgic and not ataxic Motor: muscle tone normal throughout, strength 5/5 throughout and no pronator drift Sensory Exam: no sensory deficits noted Coordination: [id number] test normal, bmzx-[id number] test normal, Romberg test normal and rapid alternating movement UE normal Other: Tandem walk attempted he was able to take 3 steps without difficulty. Extrem General: normal to inspection, full ROM, capillary refill normal, No no pedal edema, No no calf tenderness and No edema <Joan Nieto, DO - Last Filed: 12/01/24 07:36> Initial Vital Signs Initial Vital Signs: Vital Signs Temperature 100.8 F H 11/30/24 15:03 Pulse Rate 99 H 11/30/24 15:03 Respiratory Rate 18 11/30/24 15:03 Blood Pressure 107/69 11/30/24 15:03 Pulse Oximetry 97 11/30/24 15:03 Oxygen Delivery Method Room Air 11/30/24 15:03 Course <Maisha Navarrete PA-C - Last Filed: 11/30/24 17:54> Orders Ordered: Discontinued Medications Acetaminophen (Acetaminophen 325 Mg Tablet) 650 mg PO NOW ONE Stop: 11/30/24 15:49 Last Admin: 11/30/24 16:02 Dose: 650 mg Documented By: RAFA Reevaluation(s) Reevaluation #1: Patient improved following oral Tylenol 650 mg, his temperature is normal at 98.3 overall he feels much better his labs and results have been trickling in and I have kept him updated, in speaking with him he now recalls that about a month ago he accidentally took 3 or 4 additional Farixiga when he got his pill bottles mixed up, at that time he did experience significant vertiginous symptoms and that is when he actually looked up the side effects of this medication. That was again 1 month ago and he has had no medication errors in the last week. Vital Signs Vital signs: Vital Signs - 8 hr 11/30/24 15:03 11/30/24 16:59 Temperature 100.8 F H 98.3 F Pulse Rate 99 H Respiratory Rate 18 Blood Pressure 107/69 Pulse Oximetry 97 Oxygen Delivery Method Room Air Repeat temperature it is normal now at 98.3 orally. <Joan Nieto DO - Last Filed: 12/01/24 07:36> Orders Ordered: Discontinued Medications Acetaminophen (Acetaminophen 325 Mg Tablet) 650 mg PO NOW ONE Stop: 11/30/24 15:49 Last Admin: 11/30/24 16:02 Dose: 650 mg Documented By: RAFA Vital Signs Vital signs: Vital Signs - 8 hr 11/30/24 15:03 11/30/24 16:59 Temperature 100.8 F H 98.3 F Pulse Rate 99 H Respiratory Rate 18 Blood Pressure 107/69 Pulse Oximetry 97 Oxygen Delivery Method Room Air MDM - URI/Sore Throat <Maisha Navarrete PA-C - Last Filed: 11/30/24 17:54> Lab Data Lab results narrative: Quad respiratory panel was negative for COVID flu or influenza. Additional respiratory panel is ordered at the request of the patient, advised that his insurance may not cover this he would like to proceed. CBC normal except for Platelets 86 (down from 132) [labs compared to previous readings in record on August 21, 2024, A1c at that time 8.1] CMP creatinine 1.36 (up from 1.14) BUN 22 (up from 21) GFR 56 (down from >60) glucose 209, total bili 4.5 (up from 2.4) troponin 0.014 normal, TSH normal 1.1, T4 normal 5.51, UA/micro normal. 11/30/24 15:55 11/30/24 15:55 Labs: Lab Results 11/30/24 11/30/24 11/30/24 Range/Units 15:11 15:11 15:11 WBC (4.5-11.0) X10^3/uL RBC (4.5-5.9) X10^6/uL Hgb (13.5-17.5) g/dL Hct (41-53) % MCV (80-100) fL MCH (26-34) PG MCHC (30-36) % RDW (11.6-14.8) % Plt Count (150-400) X10^3/uL Neut % (Auto) (50-75) % Lymph % (Auto) (25-40) % [place] % (Auto) (3-14) % Eos % (Auto) (2-4) % Baso % (Auto) (0-2) % Neut # (Auto) (5440-7201) /uL Lymph # (Auto) (6242-1843) /uL [place] # (Auto) (0-900) /uL Eos # (Auto) (0-450) /uL Baso # (Auto) (0-100) /uL PT (9.4-12.5) SECONDS INR (0.9-1.3) Sodium (137-145) mmol/L Potassium (3.4-5.1) mmol/L Chloride (98-107) mmol/L Carbon Dioxide (22-32) mmol/L BUN (9-20) mg/dL Creatinine (0.66-1.25) mg/dL Estimated GFR (>60) mL/min BUN/Creatinine Ratio (6-22) Glucose (80-110) mg/dL Calcium (8.4-10.2) mg/dL Total Bilirubin (0.2-1.3) mg/dL AST (17-59) IU/L ALT (<50) IU/L Alkaline Phosphatase (38-126) U/L Troponin I (0.01-0.034) ng/mL Total Protein (6.3-8.2) g/dL Albumin (3.5-5.0) g/dL Globulin (1.7-4.1) g/dL Albumin/Globulin Ratio (1.0-2.8) TSH (0.47-4.68) uIU/mL Thyroxine (T4) (5.5-11.0) ug/dL Urine RBC (0-5/HPF) Urine WBC (0-5/HPF) Ur Squamous Epith Cells (0-5/HPF) Urine Bacteria (None) Ur Culture Indicated? Vol Urine Centrifuged Chlamy pneumoniae PCR Not detected (Not Detect) Adenovirus (PCR) Not detected (Not Detect) B. pertussis DNA (PCR) Not detected (Not Detect) B.parapertussis DNA PCR Not detected (Not Detecte) Coronavirus OC43 (PCR) Not detected (Not Detect) Coronavirus HKU1 (PCR) Not detected (Not Detect) Coronavirus 229E (PCR) Not detected (Not Detect) SARS-CoV-2 (PCR) Negative Not detected (Negative) Coronavirus NL63 (PCR) Not detected (Not Detect) Human Metapneumovir PCR Not detected (Not Detect) Influenza A (RT-PCR) Flu a negative (NEGATIVE) Influenza Type A (PCR) Not detected (Not Detect) Influenza B (RT-PCR) Flu b negative (NEGATIVE) Influenza Type B (PCR) Not detected (Not Detect) M. pneumoniae (PCR) Not detected (Not Detect) Parainfluenza 1 (PCR) Not detected (Not Detect) Parainfluenza 2 (PCR) Not detected (Not Detect) Parainfluenza 3 (PCR) Not detected (Not Detect) Parainfluenza 4 (PCR) Not detected (Not Detect) RSV (PCR) Negative Not detected (Negative) Entero/Rhino (PCR) Not detected (Not Detect) 11/30/24 11/30/24 Range/Units 15:55 16:12 WBC 4.8 (4.5-11.0) X10^3/uL RBC 4.67 (4.5-5.9) X10^6/uL Hgb 14.3 (13.5-17.5) g/dL Hct 42.2 (41-53) % MCV 90.5 (80-100) fL MCH 30.6 (26-34) PG MCHC 33.8 (30-36) % RDW 13.3 (11.6-14.8) % Plt Count 86 L (150-400) X10^3/uL Neut % (Auto) 81.7 H (50-75) % Lymph % (Auto) 7.3 L (25-40) % [place] % (Auto) 8.1 (3-14) % Eos % (Auto) 2.2 (2-4) % Baso % (Auto) 0.7 (0-2) % Neut # (Auto) 3900 (8658-5421) /uL Lymph # (Auto) 400 L (4044-2446) /uL [place] # (Auto) 400 (0-900) /uL Eos # (Auto) 100 (0-450) /uL Baso # (Auto) 0 (0-100) /uL PT 13.8 H (9.4-12.5) SECONDS INR 1.2 (0.9-1.3) Sodium 136 L (137-145) mmol/L Potassium 4.3 (3.4-5.1) mmol/L Chloride 101 (98-107) mmol/L Carbon Dioxide 23 (22-32) mmol/L BUN 22 H (9-20) mg/dL Creatinine 1.36 H (0.66-1.25) mg/dL Estimated GFR 56 L (>60) mL/min BUN/Creatinine Ratio 16.2 (6-22) Glucose 209 H (80-110) mg/dL Calcium 9.4 (8.4-10.2) mg/dL Total Bilirubin 4.5 H (0.2-1.3) mg/dL AST 38 (17-59) IU/L ALT 36 (<50) IU/L Alkaline Phosphatase 74 (38-126) U/L Troponin I 0.014 (0.01-0.034) ng/mL Total Protein 7.7 (6.3-8.2) g/dL Albumin 4.8 (3.5-5.0) g/dL Globulin 2.9 (1.7-4.1) g/dL Albumin/Globulin Ratio 1.7 (1.0-2.8) TSH 1.11 (0.47-4.68) uIU/mL Thyroxine (T4) 5.51 (5.5-11.0) ug/dL Urine RBC None seen (0-5/HPF) Urine WBC None seen (0-5/HPF) Ur Squamous Epith Cells None seen (0-5/HPF) Urine Bacteria None seen (None) Ur Culture Indicated? Cult not indicated Vol Urine Centrifuged 10ml (spun) Chlamy pneumoniae PCR (Not Detect) Adenovirus (PCR) (Not Detect) B. pertussis DNA (PCR) (Not Detect) B.parapertussis DNA PCR (Not Detecte) Coronavirus OC43 (PCR) (Not Detect) Coronavirus HKU1 (PCR) (Not Detect) Coronavirus 229E (PCR) (Not Detect) SARS-CoV-2 (PCR) (Negative) Coronavirus NL63 (PCR) (Not Detect) Human Metapneumovir PCR (Not Detect) Influenza A (RT-PCR) (NEGATIVE) Influenza Type A (PCR) (Not Detect) Influenza B (RT-PCR) (NEGATIVE) Influenza Type B (PCR) (Not Detect) M. pneumoniae (PCR) (Not Detect) Parainfluenza 1 (PCR) (Not Detect) Parainfluenza 2 (PCR) (Not Detect) Parainfluenza 3 (PCR) (Not Detect) Parainfluenza 4 (PCR) (Not Detect) RSV (PCR) (Negative) Entero/Rhino (PCR) (Not Detect) Urine Dip Bedside Urine Glucose 1000 mg/dl Bedside Urine Bilirubin - Negative Bedside Urine Ketone ++ 40 Urine Specific Anderson 1.010 Bedside Urine Occult Blood - Negative Bedside Urine pH 5.5 Bedside Urine Protein - Negative Bedside Urine Urobilinogen - Negative Bedside Urine Nitrite - Negative Bedside Urine Leukocytes - Negative Esterase Imaging Data Chest x-ray: My Impression: Deferred to radiologist's interpretation below. Radiologist's Impression: PROCEDURE: XR CHEST 2V INDICATIONS: fever, hx of CHF, pacemaker TECHNIQUE: 2 views of the chest were acquired. COMPARISON: [facility], CR, XR CHEST 2V, 08/21/2024, 14:24. [facility], CR, XR CHEST 1V, 06/17/2019, 11:15. FINDINGS: Surgical changes and devices: Left chest wall pulse generator with defibrillator lead. Lungs and pleura: No dense airspace disease. Mild right pleural thickening. Mild peribronchial thickening Mediastinum: Normal heart size is unchanged Bones and chest wall: Degenerative changes. IMPRESSION: No dense airspace disease. No drainable pleural effusion. Mild peribronchial thickening may represent atypical infection. Dictated by: Kiran Finn M.D. on 11/30/2024 at 17:06 Approved by: Kiran Finn M.D. on 11/30/2024 at 17:07 ECG Data Interpretation: Twelve lead ECG shows a normal sinus rhythm with an incomplete left bundle branch block ventricular rate of 100 beats per minute, nonspecific ST and T-wave abnormality. Normal axis, normal CA interval. No P wave abnormality. No ectopy. This was reviewed by the attending Dr. Nieto, who compared to prior tracing, no interval change. MDM Narrative Medical decision making narrative: This gentleman who has been humorous and telling jokes throughout the entire encounter and has a complex medical history and he is followed by Dr. Lloyd. There are no focal neurologic findings on examination. He had a mild frontal headache and some sinus discomfort in the left maxillary but states he feels better after a single dose of Tylenol 650 mg. Mild serous fluid seen behind both TM's, without loss of bony landmarks. CBC is within normal limits except for drop in his platelets but he has a history of thrombocytopenia, his chemistry is also consistent with previous readings although he did have a bump in his creatinine of 1.36 and a GFR of 56 up from 1.14 respectively. Glucose is 209. Slight bump in his total bilirubin of 4.5 up from 2.4 which was also elevated and he is completely asymptomatic no abdominal pain, nausea and no findings on his abdominal exam. Chest X-ray shows: No dense airspace disease, no drainable pleural effusion, and mild peribronchial thickening may represent atypical infection. His respiratory panel was completely negative. No clinical findings on examination to suggest any bacterial infection, his urinalysis was normal. He is without any pain and is now completely asymptomatic. Because of the findings on his x-ray in his underlying history, mild sinus discomfort on the left side and some fluid behind his TMs I have opted to cover him with Augmentin this will also provide some coverage for his respiratory system as well. I discussed these plans with the patient he is in agreement, he agrees to contact his PCP in the morning for follow up. We reviewed at length red flag warning signs and to seek emergent medical attention if he develops any recurrent symptoms, any new worrisome symptoms or of course to call 911 if he is in extremis. <Joan Nieto, DO - Last Filed: 12/01/24 07:36> Lab Data Labs: Lab Results 11/30/24 11/30/24 11/30/24 Range/Units 15:11 15:11 15:11 WBC (4.5-11.0) X10^3/uL RBC (4.5-5.9) X10^6/uL Hgb (13.5-17.5) g/dL Hct (41-53) % MCV (80-100) fL MCH (26-34) PG MCHC (30-36) % RDW (11.6-14.8) % Plt Count (150-400) X10^3/uL Neut % (Auto) (50-75) % Lymph % (Auto) (25-40) % [place] % (Auto) (3-14) % Eos % (Auto) (2-4) % Baso % (Auto) (0-2) % Neut # (Auto) (4268-3764) /uL Lymph # (Auto) (7552-9019) /uL [place] # (Auto) (0-900) /uL Eos # (Auto) (0-450) /uL Baso # (Auto) (0-100) /uL PT (9.4-12.5) SECONDS INR (0.9-1.3) Sodium (137-145) mmol/L Potassium (3.4-5.1) mmol/L Chloride (98-107) mmol/L Carbon Dioxide (22-32) mmol/L BUN (9-20) mg/dL Creatinine (0.66-1.25) mg/dL Estimated GFR (>60) mL/min BUN/Creatinine Ratio (6-22) Glucose (80-110) mg/dL Calcium (8.4-10.2) mg/dL Total Bilirubin (0.2-1.3) mg/dL AST (17-59) IU/L ALT (<50) IU/L Alkaline Phosphatase (38-126) U/L Troponin I (0.01-0.034) ng/mL Total Protein (6.3-8.2) g/dL Albumin (3.5-5.0) g/dL Globulin (1.7-4.1) g/dL Albumin/Globulin Ratio (1.0-2.8) TSH (0.47-4.68) uIU/mL Thyroxine (T4) (5.5-11.0) ug/dL Urine RBC (0-5/HPF) Urine WBC (0-5/HPF) Ur Squamous Epith Cells (0-5/HPF) Urine Bacteria (None) Ur Culture Indicated? Vol Urine Centrifuged Chlamy pneumoniae PCR Not detected (Not Detect) Adenovirus (PCR) Not detected (Not Detect) B. pertussis DNA (PCR) Not detected (Not Detect) B.parapertussis DNA PCR Not detected (Not Detecte) Coronavirus OC43 (PCR) Not detected (Not Detect) Coronavirus HKU1 (PCR) Not detected (Not Detect) Coronavirus 229E (PCR) Not detected (Not Detect) SARS-CoV-2 (PCR) Negative Not detected (Negative) Coronavirus NL63 (PCR) Not detected (Not Detect) Human Metapneumovir PCR Not detected (Not Detect) Influenza A (RT-PCR) Flu a negative (NEGATIVE) Influenza Type A (PCR) Not detected (Not Detect) Influenza B (RT-PCR) Flu b negative (NEGATIVE) Influenza Type B (PCR) Not detected (Not Detect) M. pneumoniae (PCR) Not detected (Not Detect) Parainfluenza 1 (PCR) Not detected (Not Detect) Parainfluenza 2 (PCR) Not detected (Not Detect) Parainfluenza 3 (PCR) Not detected (Not Detect) Parainfluenza 4 (PCR) Not detected (Not Detect) RSV (PCR) Negative Not detected (Negative) Entero/Rhino (PCR) Not detected (Not Detect) 11/30/24 11/30/24 Range/Units 15:55 16:12 WBC 4.8 (4.5-11.0) X10^3/uL RBC 4.67 (4.5-5.9) X10^6/uL Hgb 14.3 (13.5-17.5) g/dL Hct 42.2 (41-53) % MCV 90.5 (80-100) fL MCH 30.6 (26-34) PG MCHC 33.8 (30-36) % RDW 13.3 (11.6-14.8) % Plt Count 86 L (150-400) X10^3/uL Neut % (Auto) 81.7 H (50-75) % Lymph % (Auto) 7.3 L (25-40) % [place] % (Auto) 8.1 (3-14) % Eos % (Auto) 2.2 (2-4) % Baso % (Auto) 0.7 (0-2) % Neut # (Auto) 3900 (5280-4738) /uL Lymph # (Auto) 400 L (9753-4667) /uL [place] # (Auto) 400 (0-900) /uL Eos # (Auto) 100 (0-450) /uL Baso # (Auto) 0 (0-100) /uL PT 13.8 H (9.4-12.5) SECONDS INR 1.2 (0.9-1.3) Sodium 136 L (137-145) mmol/L Potassium 4.3 (3.4-5.1) mmol/L Chloride 101 (98-107) mmol/L Carbon Dioxide 23 (22-32) mmol/L BUN 22 H (9-20) mg/dL Creatinine 1.36 H (0.66-1.25) mg/dL Estimated GFR 56 L (>60) mL/min BUN/Creatinine Ratio 16.2 (6-22) Glucose 209 H (80-110) mg/dL Calcium 9.4 (8.4-10.2) mg/dL Total Bilirubin 4.5 H (0.2-1.3) mg/dL AST 38 (17-59) IU/L ALT 36 (<50) IU/L Alkaline Phosphatase 74 (38-126) U/L Troponin I 0.014 (0.01-0.034) ng/mL Total Protein 7.7 (6.3-8.2) g/dL Albumin 4.8 (3.5-5.0) g/dL Globulin 2.9 (1.7-4.1) g/dL Albumin/Globulin Ratio 1.7 (1.0-2.8) TSH 1.11 (0.47-4.68) uIU/mL Thyroxine (T4) 5.51 (5.5-11.0) ug/dL Urine RBC None seen (0-5/HPF) Urine WBC None seen (0-5/HPF) Ur Squamous Epith Cells None seen (0-5/HPF) Urine Bacteria None seen (None) Ur Culture Indicated? Cult not indicated Vol Urine Centrifuged 10ml (spun) Chlamy pneumoniae PCR (Not Detect) Adenovirus (PCR) (Not Detect) B. pertussis DNA (PCR) (Not Detect) B.parapertussis DNA PCR (Not Detecte) Coronavirus OC43 (PCR) (Not Detect) Coronavirus HKU1 (PCR) (Not Detect) Coronavirus 229E (PCR) (Not Detect) SARS-CoV-2 (PCR) (Negative) Coronavirus NL63 (PCR) (Not Detect) Human Metapneumovir PCR (Not Detect) Influenza A (RT-PCR) (NEGATIVE) Influenza Type A (PCR) (Not Detect) Influenza B (RT-PCR) (NEGATIVE) Influenza Type B (PCR) (Not Detect) M. pneumoniae (PCR) (Not Detect) Parainfluenza 1 (PCR) (Not Detect) Parainfluenza 2 (PCR) (Not Detect) Parainfluenza 3 (PCR) (Not Detect) Parainfluenza 4 (PCR) (Not Detect) RSV (PCR) (Negative) Entero/Rhino (PCR) (Not Detect) Urine Dip Bedside Urine Glucose 1000 mg/dl Bedside Urine Bilirubin - Negative Bedside Urine Ketone ++ 40 Urine Specific Anderson 1.010 Bedside Urine Occult Blood - Negative Bedside Urine pH 5.5 Bedside Urine Protein - Negative Bedside Urine Urobilinogen - Negative Bedside Urine Nitrite - Negative Bedside Urine Leukocytes - Negative Esterase Discharge Plan Departure Patient Disposition: Home Clinical Impression: Acute viral syndrome, Low platelet count Benign paroxysmal positional vertigo Qualifiers: Laterality: unspecified laterality Qualified Code(s): H81.10 - Benign paroxysmal vertigo, unspecified ear Instructions: DI for Benign Paroxysmal Positional Vertigo Activity Restrictions/Additional Instructions: I would like you to contact Dr. Lloyd's office in the morning and schedule an emergency department follow-up. You may continue acetaminophen every 4-6 hours. I would keep her activity light and avoid any excessive salt, guard against fall, make no sudden movements, avoid bending over to pick things up, consider some saline nasal spray for any of your sinus congestion, and of course do not hesitate to return to the emergency department if you develop any recurrent symptoms, any new worrisome symptoms. If you feel unwell do not drive and call 911. Use caution when organizing your medications and avoid medication dosing errors. Prescriptions: New amoxicillin-pot clavulanate 875-125 mg tablet 1 tab PO BID 7 Days Qty: 14 0RF No Action duloxetine [Cymbalta] 90 mg PO insulin aspart U-100 100 unit/mL (3 mL) insulin pen 10 unit SUBCUT QAC Qty: 30 1RF duloxetine 30 mg capsule,delayed release(DR/EC) 30 mg PO DAILY Qty: 90 1RF Rx Instructions: patient takes a total of 90mg a day duloxetine 60 mg capsule,delayed release(DR/EC) 60 mg PO DAILY Qty: 90 1RF Rx Instructions: patient takes a total of 90mg a day gabapentin 800 mg tablet 2,400 mg PO BEDTIME Qty: 90 2RF dapagliflozin propanediol [Farxiga] 10 mg tablet 10 mg PO DAILY Qty: 90 3RF insulin glargine U-300 conc [Toujeo Max U-300 SoloStar] 300 unit/mL (3 mL) insulin pen 70 unit SUBCUT DAILY Qty: 18 1RF (DME) Dexcom G7 Sensor Device See Rx Instructions .Route Qty: 9 1RF Rx Instructions: As directed, to be replaced once every 10 days furosemide 40 mg tablet 40 mg PO DAILY carvedilol 25 mg tablet 50 mg PO DAILY spironolactone 25 mg tablet 25 mg PO DAILY vitamin A 10,000 unit Capsule 10,000 unit PO DAILY losartan 25 mg tablet 25 mg PO DAILY thyroid (pork) [INTERACTIVE ART DIRECTOR Thyroid] 60 mg tablet 60 mg PO DAILY cyanocobalamin (vitamin B-12) [Vitamin B-12] 2,500 mcg Tablet, Sublingual 2,500 mcg SUBLINGUAL DAILY ascorbate calcium (vitamin C) 500 mg Tablet 500 mg PO DAILY melatonin 5 mg Tablet 5 mg PO BEDTIME PRN (Reason: Sleep) cholecalciferol (vitamin D3) [Vitamin D3] 5,000 unit Tablet 5,000 unit PO DAILY vitamin B complex [B-Complex] Tablet 1 tab PO DAILY magnesium 250 mg Tablet 250 mg PO DAILY acetaminophen 500 mg Capsule 500 mg PO Q4H PRN (Reason: Pain (Scale Score 4-6)) omega 8-gbm-eyg-fish oil [Fish Oil] 1,000 mg (120 mg-180 mg) Capsule 1 cap PO DAILY Probiotic 20 billion cell Capsule 20,000 mmu cells PO DAILY clonazepam [Klonopin] 2 mg tablet 2 mg PO .QHS Qty: 6 0RF Referrals: Scott Lloyd MD [Primary Care Provider] - Stand Alone Forms: Patient Portal/API/Survey ED Sign-out <Joan Nieto DO - Last Filed: 12/01/24 07:36> Cosign ED Attending Cossilvanoature Attestation: I was immediately available in the department for consultation.
[2024-11-30 15:52] LABS: Influenza A - CEPHEID Flu A NEGATIVE (NEGATIVE); Influenza B - CEPHEID Flu B NEGATIVE (NEGATIVE); Respiratory Syncytial Virus Negative (Negative)
[2024-11-30 15:53] LABS: COVID-19 CEPHEID 4-PLEX PCR Negative (Negative)
[2024-11-30] MEDS: ACETAMINOPHEN 325 MG TABLET 650 MG PO (16:02)
--- NOTE | 2024-11-30 16:03 | DI.RAD.S_ITS ---
PROCEDURE: XR CHEST 2V INDICATIONS: fever, hx of CHF, pacemaker TECHNIQUE: 2 views of the chest were acquired. COMPARISON: Merged With [facility], CR, XR CHEST 2V, 08/21/2024, 14:24. Merged With [facility], CR, XR CHEST 1V, 06/17/2019, 11:15. FINDINGS: Surgical changes and devices: Left chest wall pulse generator with defibrillator lead. Lungs and pleura: No dense airspace disease. Mild right pleural thickening. Mild peribronchial thickening Mediastinum: Normal heart size is unchanged Bones and chest wall: Degenerative changes. IMPRESSION: No dense airspace disease. No drainable pleural effusion. Mild peribronchial thickening may represent atypical infection. Dictated by: Kiran Finn M.D. on 11/30/2024 at 17:06 Approved by: Kiran Finn M.D. on 11/30/2024 at 17:07
[2024-11-30 16:13] LABS: Add Manual Diff / Slide Review NO; Basophils Absolute Auto 0 /uL (0-100); Basophils Percent Auto 0.7 % (0-2); Eosinophils Absolute Auto 100 /uL (0-450); Eosinophils Percent Auto 2.2 % (2-4); Hematocrit 42.2 % (41-53); Hemoglobin 14.3 g/dL (13.5-17.5); Lymphocytes Absolute Auto 400 /uL (1100-4500); Lymphocytes Percent Auto 7.3 % (25-40); Mean Corpuscular HGB Conc 33.8 % (30-36); Mean Corpuscular Hemoglobin 30.6 PG (26-34); Mean Corpuscular Volume 90.5 fL (80-100); Monocytes Absolute Auto 400 /uL (0-900); Monocytes Percent Auto 8.1 % (3-14); Neutrophils Absolute Auto 3900 /uL (1500-7000); Neutrophils Percent Auto 81.7 % (50-75); Platelet Count 86 X10^3/uL (150-400); Red Blood Cell Count 4.67 X10^6/uL (4.5-5.9); Red Cell Distribution Width 13.3 % (11.6-14.8); White Blood Cell Count 4.8 X10^3/uL (4.5-11.0)
[2024-11-30 16:23] LABS: INR 1.2 (0.9-1.3); Prothrombin Time 13.8 SECONDS (9.4-12.5)
[2024-11-30 16:32] LABS: Alanine Aminotransferase 36 IU/L (<50); Albumin 4.8 g/dL (3.5-5.0); Albumin Globulin Ratio 1.7 (1.0-2.8); Alkaline Phosphatase 74 U/L (38-126); Aspartate Aminotransferase 38 IU/L (17-59); BUN Creatinine Ratio 16.2 (6-22); Bilirubin Total 4.5 mg/dL (0.2-1.3); Blood Urea Nitrogen 22 mg/dL (9-20); Calcium 9.4 mg/dL (8.4-10.2); Carbon Dioxide 23 mmol/L (22-32); Chloride 101 mmol/L (98-107); Estimated Glomerular Filt Rate 56 mL/min (>60); Globulin 2.9 g/dL (1.7-4.1); Glucose 209 mg/dL (80-110); HEMOLYSIS < 15 (0-50); Potassium 4.3 mmol/L (3.4-5.1); Sodium 136 mmol/L (137-145); Total Protein 7.7 g/dL (6.3-8.2)
[2024-11-30 16:41] LABS: Bacteria Urine None Seen; Culture Indicated Urine Cult Not Indicated; RBC Urine None Seen (0-5/HPF); Squamous Epithelial Cell Urine None Seen (0-5/HPF); Urine Volume 10mL (spun); WBC Urine None Seen (0-5/HPF)
[2024-11-30 16:44] LABS: Troponin I 0.014 ng/mL (0.01-0.034)
[2024-11-30 16:50] LABS: T4 Total Thyroxine 5.51 ug/dL (5.5-11.0)
[2024-11-30 16:59] VITALS: TEMP 36.8
[2024-11-30 17:04] LABS: Thyroid Stimulating Hormone 1.11 uIU/mL (0.47-4.68)
[2024-11-30 17:24] LABS: Adenovirus Not Detected (Not Detect); B. parapertussis Not Detected (Not Detecte); Bordetella pertussis Not Detected (Not Detect); Chlamydophila pneumoniae Not Detected (Not Detect); Coronavirus 229E Not Detected (Not Detect); Coronavirus HKU1 Not Detected (Not Detect); Coronavirus NL 63 Not Detected (Not Detect); Coronavirus OC43 Not Detected (Not Detect); Human Metapneumovirus Not Detected (Not Detect); Human Rhinovirus/Enterovirus Not Detected (Not Detect); Influenza A Not Detected (Not Detect); Influenza B Not Detected (Not Detect); Mycoplasma pneumoniae Not Detected (Not Detect); Parainfluenza Virus 1 Not Detected (Not Detect); Parainfluenza Virus 2 Not Detected (Not Detect); Parainfluenza Virus 3 Not Detected (Not Detect); Parainfluenza Virus 4 Not Detected (Not Detect); Respiratory Syncytial Virus Not Detected (Not Detect); SARS- CoV-2 Not Detected (Not Detecte)
[2024-11-30 17:47] VITALS: BP 112/63; PULSE 84; RESP 18; TEMP 36.9; O2SAT 95
== END 2024-11-30 17:49 | disposition home or self-care (01) ==
PROVIDERS: Emergency Medicine; Emergency Provider Physician Assistant Medical; PCP Family Medicine
DX: H81.10 Benign paroxysmal vertigo, unspecified ear (principal); D69.6 Thrombocytopenia, unspecified; B34.9 Viral infection, unspecified; R50.9 Fever, unspecified; I50.9 Heart failure, unspecified; Z79.01 Long term (current) use of anticoagulants; Z95.0 Presence of cardiac pacemaker; R51.9 Headache, unspecified; I44.7 Left bundle-branch block, unspecified
CPT/HCPCS: 0241U; 36415; 71046; 80053; 81003; 81015; 84436; 84443; 84484; 85025; 85610; 87633; 93005; 93010; 99284

== ENCOUNTER → 2024-12-11 13:24 | Outpatient (CLI) | payer BC, SELFPAY ==
--- NOTE | 2024-12-11 13:26 | DI.RAD.S_ITS ---
PROCEDURE: XR SACRUM COCCYX MIN 2V INDICATIONS: Coccygeal pain x2 months after fall TECHNIQUE: 3 views of the sacrum and coccyx acquired. COMPARISON: None. FINDINGS: Bones: There are no fractures or other osseous abnormalities. SI joints: Normal in width and alignment without arthritic change Soft tissues: No soft tissue swelling, calcification or mass. IMPRESSION: No fracture identified. Dictated by: Prashant Lorenzo M.D. on 12/12/2024 at 10:54 Approved by: Prashant Lorenzo M.D. on 12/12/2024 at 10:55
== END ==
PROVIDERS: PCP Family Medicine; Referring Provider Family Medicine; Visit Provider Family Medicine
DX: M53.3 Sacrococcygeal disorders, not elsewhere classified (principal); R29.6 Repeated falls
CPT/HCPCS: 72220

== ENCOUNTER → 2024-12-28 13:15 | Outpatient (CLI) | payer BC, SELFPAY ==
--- NOTE | 2024-12-28 13:16 | DI.CT.S_ITS ---
PROCEDURE: CT HEAD/BRAIN WO CON INDICATIONS: Recurrent falls x2 months, possible head trauma TECHNIQUE: Noncontrast 4.5 mm thick angled axial sections acquired from the foramen magnum to the vertex, with coronal and sagittal reformats. For radiation dose reduction, the following was used: automated exposure control, adjustment of mA and/or kV according to patient size. COMPARISON: None. FINDINGS: Image quality: Diagnostic. CSF spaces: Basal cisterns are patent. No extra-axial fluid collections. The ventricles are symmetric in size and shape. Brain: No intracranial bleeds or masses. There is cerebral volume loss for age, with resultant ventricular and sulcal prominence. There are periventricular and deep white matter chronic small vessel ischemic changes. There is intracranial internal carotid artery atherosclerosis. Skull and face: Mild soft tissue hematoma can be seen involving the left lateral scalp. Calvarium and visualized facial bones appear intact, without suspicious lesions. Sinuses: Visualized sinuses and mastoids are clear. IMPRESSION: No acute intracranial hemorrhage is seen. No acute intracranial pathology. Mild soft tissue hematoma can be seen involving the left lateral scalp. Dictated by: Daniel Moncada M.D. on 12/28/2024 at 12:34 Approved by: Daniel Moncada M.D. on 12/28/2024 at 12:35
--- NOTE | 2024-12-28 13:16 | DI.CT.S_ITS ---
PROCEDURE: CT CHEST WO CON INDICATIONS: Two new nodules right mid lung on 08/21 CXR TECHNIQUE: Noncontrast 5 mm thick sections acquired from the pulmonary apices to the posterior costophrenic angles. 1 mm lung window, 5 mm thick coronal and sagittal and 7 mm axial MIP reformats were then acquired. For radiation dose reduction, the following was used: automated exposure control, adjustment of mA and/or kV according to patient size. COMPARISON: [facility], CT, CT CHEST WO [facility], 09/27/2024, 11:28. FINDINGS: Image quality: Diagnostic. Lower Neck: No enlarged lymph nodes. Thyroid: No thyroid nodules which require sonographic follow up, per consensus guidelines. Axillae: No enlarged lymph nodes. Chest Wall: Unremarkable. Bones: Unremarkable. Lungs and Pleura: No pneumothorax or pleural effusions. Previously identified pleural based/subpleural nodules are unchanged, the largest measuring 1.5 cm. . No new nodules. Heart: Heart size is normal. No pericardial effusion. Thoracic Vessels: The aorta and pulmonary arteries demonstrate normal size. Mediastinum and Debra: No enlarged lymph nodes. Esophagus: No wall thickening. Mild hiatal hernia. Upper Abdomen: Cholelithiasis. Otherwise, visualized upper abdomen solid organs and bowel loops appear normal. IMPRESSION: Unchanged appearance pulmonary nodules. Recommend interval follow-up to document stability in 1 year. Dictated by: Triny Pena M.D. on 12/28/2024 at 15:32 Approved by: Triny Pena M.D. on 12/28/2024 at 16:11
== END ==
LOC: CT 13:15
PROVIDERS: PCP Family Medicine; Referring Provider Family Medicine; Visit Provider Family Medicine
DX: I65.29 Occlusion and stenosis of unspecified carotid artery (principal); S00.03XA Contusion of scalp, initial encounter; R29.6 Repeated falls; R91.8 Other nonspecific abnormal finding of lung field; R05.3 Chronic cough
CPT/HCPCS: 70450; 71250

== ENCOUNTER 2025-01-16 16:02 | Emergency (ER) | payer BC, SELFPAY ==
[2025-01-16] VITALS (7 sets, daily range): BP systolic 165–185; BP diastolic 78–98; PULSE 77–90; RESP 18–22; TEMP 36.3; O2SAT 97–99; BMI 25.1
--- NOTE | 2025-01-16 16:27 | EKG_ITS ---
[place] [id number] [place] [id number] Test Date: 2025-01-16 Pat Name: Chidi George Department: Room: Gender: Male Environmental Services Manager: LEIGH ANN : 1955 Requested By: Order Number: [id number] Reading MD: Sadiq Sherman Measurements Intervals [place] Rate: 74 P: 49 LA: 148 QRS: -3 QRSD: 114 T: 41 QT: 436 QTc: 483 Interpretive Statements Normal sinus rhythm Moderate voltage criteria for LVH, may be normal variant ( Sokolow-Ramirez , Brodie product ) Nonspecific ST abnormality Prolonged QT Electronically Signed On 01-16-2025 17:34:24 PST by Sadiq Sherman
[2025-01-16 16:51] LABS: Add Manual Diff / Slide Review NO; Basophils Absolute Auto 0 /uL (0-100); Basophils Percent Auto 0.6 % (0-2); Eosinophils Absolute Auto 0 /uL (0-450); Eosinophils Percent Auto 0.2 % (2-4); Hematocrit 46.2 % (41-53); Hemoglobin 15.7 g/dL (13.5-17.5); Lymphocytes Absolute Auto 1300 /uL (1100-4500); Lymphocytes Percent Auto 21.1 % (25-40); Mean Corpuscular HGB Conc 33.9 % (30-36); Mean Corpuscular Hemoglobin 31.1 PG (26-34); Mean Corpuscular Volume 91.6 fL (80-100); Monocytes Absolute Auto 200 /uL (0-900); Monocytes Percent Auto 3.8 % (3-14); Neutrophils Absolute Auto 4500 /uL (1500-7000); Neutrophils Percent Auto 74.3 % (50-75); Platelet Count 148 X10^3/uL (150-400); Red Blood Cell Count 5.04 X10^6/uL (4.5-5.9); Red Cell Distribution Width 12.7 % (11.6-14.8); White Blood Cell Count 6.1 X10^3/uL (4.5-11.0)
[2025-01-16 17:04] LABS: Alanine Aminotransferase 37 IU/L (<50); Albumin 5.2 g/dL (3.5-5.0); Albumin Globulin Ratio 1.5 (1.0-2.8); Alkaline Phosphatase 74 U/L (38-126); Aspartate Aminotransferase 47 IU/L (17-59); BUN Creatinine Ratio 24.8 (6-22); Bilirubin Total 3.8 mg/dL (0.2-1.3); Blood Urea Nitrogen 25 mg/dL (9-20); Calcium 9.3 mg/dL (8.4-10.2); Carbon Dioxide 19 mmol/L (22-32); Chloride 98 mmol/L (98-107); Estimated Glomerular Filt Rate > 60 mL/min (>60); Ethanol (ETOH) < 10 mg/dL; Globulin 3.4 g/dL (1.7-4.1); Glucose 178 mg/dL (80-110); HEMOLYSIS 19 (0-50); Potassium 4.5 mmol/L (3.4-5.1); Sodium 137 mmol/L (137-145); Total Protein 8.6 g/dL (6.3-8.2)
[2025-01-16 17:12] LABS: Ur Creatinine Normal (Normal); Ur Specific Gravity Normal (Normal); Urine Amphetamines Negative (Negative); Urine Barbiturates Negative (Negative); Urine Benzodiazepines Negative (Negative); Urine Cocaine Negative (Negative); Urine MDMA Negative (Negative); Urine Methadone Negative (Negative); Urine Methamphetamines Negative (Negative); Urine Opiates Negative (Negative); Urine Oxycodone Negative (Negative); Urine Phencyclidine Negative (Negative); Urine THC Negative (Negative); Urine Tricyclic Antidepressant Negative (Negative); Urine pH Normal (Normal)
[2025-01-16 17:13] LABS: Appearance Urine UA CLEAR; Bilirubin Urine UA NEGATIVE (NEGATIVE); Color Urine UA YELLOW; Glucose Urine UA 3+ g/dL (Negative); Ketones Urine UA 2+ (NEGATIVE); Leukocyte Esterase Urine UA NEGATIVE (NEGATIVE); Nitrite Urine UA NEGATIVE (Negative); Occult Blood Urine UA TRACE-INTACT (Negative); Protein Urine UA 1+ (Negative); Specific Gravity Urine UA >=1.030 (1.000-1.035); Urobilinogen Urine UA 0.2 E.U./dL (0.2)
[2025-01-16 17:15] LABS: Bacteria Urine Occasional (0-1); Culture Indicated Urine Cult Not Indicated; Mucus Urine 1+ (Negative); RBC Urine 0-1/HPF (0-5/HPF); Squamous Epithelial Cell Urine 0-1 /HPF (0-5/HPF); Urine Volume 10mL (spun); WBC Urine 0-1/HPF (0-5/HPF)
--- NOTE | 2025-01-16 19:59 | PC.NURSE ---
Assumed care of pt at this time. Discussed plan, understands. Waiting for MD.
--- NOTE | 2025-01-16 21:12 | ED_ITS ---
HPI - General Adult General Chief complaint: Weakness Stated complaint: not sleeping d/t med change, fall, rib pain Time Seen by Provider: 01/16/25 16:26 Source: patient Mode of arrival: Ambulatory History of Present Illness HPI narrative: 69-year-old male past medical history of CHF diabetes with AICD presents from walk-in clinic for evaluation of multiple complaints. He states that he has been having a hard time falling asleep states he was recently taken off his Klonopin and started taking trazodone, states that since then he has not been able to sleep very well. Also states that he has been on his diabetic medication called Cortezhannah but is stating that he feels like he is having side effects from this which he describes as intermittent hypoglycemia. However on evaluation here glucose 179. He also states that he had a mechanical trip and fall on Wednesday denies head strike not any blood thinners but is stating he started developing muscle spasms to his right side due to the fact that he has been sitting and uncomfortable chairs in the waiting room. He denies any other injuries denies any other symptoms such as chest pain shortness breath fever chills nausea vomiting abdominal pain or any other GI/ symptoms. Related Data Home Medications Medication Instructions Recorded Confirmed acetaminophen 500 mg capsule 500 mg PO Q4H PRN Pain (Scale 06/17/19 12/11/24 Score 4-6) ascorbate calcium (vitamin C) 500 500 mg PO DAILY 06/17/19 12/11/24 mg tablet carvedilol 25 mg tablet 50 mg PO DAILY 06/17/19 12/11/24 cholecalciferol (vitamin D3) 125 5,000 unit PO DAILY 06/17/19 12/11/24 mcg (5,000 unit) tablet (Vitamin D3) cyanocobalamin (vitamin B-12) 2,500 mcg sublingual DAILY 06/17/19 12/11/24 2,500 mcg sublingual tablet (Vitamin B-12) furosemide 40 mg tablet 40 mg PO DAILY 06/17/19 12/11/24 lactobacillus comb no.10 20 20,000 mmu cells PO DAILY 06/17/19 12/11/24 billion cell capsule (Probiotic) losartan 25 mg tablet 25 mg PO DAILY 06/17/19 12/11/24 magnesium 250 mg tablet 250 mg PO DAILY 06/17/19 12/11/24 omega 3-rls-jxy-fish oil 1,000 mg 1 cap PO DAILY 06/17/19 12/11/24 (120 mg-180 mg) capsule (Fish Oil) spironolactone 25 mg tablet 25 mg PO DAILY 06/17/19 12/11/24 thyroid (pork) 60 mg tablet 60 mg PO DAILY 06/17/19 12/11/24 vitamin A 3,000 mcg (10,000 unit) 10,000 unit PO DAILY 06/17/19 12/11/24 capsule vitamin B complex (B-Complex 1 tab PO DAILY 06/17/19 12/11/24 tablet) duloxetine [Cymbalta] 90 mg PO 10/11/24 12/11/24 Previous Rx's Medication Instructions Recorded insulin aspart U-100 100 unit/mL 10 unit (0.1 mL) SUBCUT QAC #30 mL 09/21/24 (3 mL) subcutaneous pen dapagliflozin propanediol 10 mg 10 mg PO DAILY #90 tabs 09/28/24 tablet (Farxiga) gabapentin 800 mg tablet 2,400 mg (3 x 800 mg) PO BEDTIME 09/28/24 #90 tabs blood-glucose sensor (Dexcom G7 #9 ea 10/02/24 Sensor device) meclizine 12.5 mg tablet 12.5 mg PO BID-QID PRN dizziness 12/06/24 #60 tabs insulin glargine U-300 conc 300 70 unit (0.2333 mL) SUBCUT DAILY 12/12/24 unit/mL (3 mL) subcutaneous pen #24 mL (Toujeo Max U-300 SoloStar) duloxetine 30 mg capsule,delayed 30 mg PO DAILY #90 caps 01/02/25 release duloxetine 60 mg capsule,delayed 60 mg PO DAILY #90 caps 01/02/25 release methocarbamol 750 mg tablet See Rx Instructions PO BEDTIME PRN 01/09/25 muscle spasm #60 tabs trazodone 50 mg tablet 50 mg PO BEDTIME PRN insomnia #30 01/09/25 tabs diazepam 5 mg tablet (Valium) 5 mg PO BEDTIME PRN muscle spasm 5 01/16/25 days #5 tabs ondansetron 4 mg disintegrating 4 mg PO Q8H PRN nausea and 01/16/25 tablet vomiting 5 days #15 tabs Allergies Allergy/AdvReac Type Severity Reaction Status Date / Time sulfamethoxazole Allergy Unknown Verified 01/09/25 13:32 [From BACTRIM] trimethoprim [From BACTRIM] Allergy Unknown Verified 01/09/25 13:32 general anesthesia AdvReac Intermediate enlarged Uncoded 01/09/25 13:32 prostate Review of Systems Review of Systems Narrative: General: Lack of sleep Denies fever, chills, weight loss HEENT: Denies headache, eye drainage, eye irritation, head trauma, sore throat, voice change Cardiovascular: Denies any chest pain, palpitations, shortness of breath, tachycardia Respiratory: Denies any shortness of breath, cough, wheeze, stridor GI/: Denies any abdominal pain, nausea, vomiting, diarrhea, bright red blood per rectum, melanotic stools, urinary frequency, urinary retention, dysuria, hematuria MSK: Muscle spasm to the right side of his back Denies any joint pain, muscle pains, swelling Skin: Denies any rashes, lesions, discoloration Neuro: Denies any headache, lightheadedness, dizziness, fainting, weakness Psych: Denies SI/HI Patient History Medical History History of Tricia-Lopez virus infection Chlamydial pneumonia Sleep apnea (~2009) Abnormal chest xray (~2021) Depression ADHD Shoulder pain (~2022) Chronic back pain (~1977) Mumps (~1959) Measles (~1959) Chicken pox (~1959) Low platelet count Liver disease Hemorrhoid (~1999) Low testosterone Hypothyroidism Pacemaker (~2013) Hypertension (~1979) Skin cancer (~1994) Melanoma (~1999) CHF (congestive heart failure) Diabetes Lyme disease (~1965) Surgical History Anesthesia History of laminectomy (~1970) Family History Father Cancer Mother Cancer Hypertension Mental health problem Grandfather History of heart disease Stroke Grandfather History of heart disease Stroke Grandfather History of heart disease Grandmother History of heart disease Social History marital status: household members: spouse Smoking Status: Never smoker Smoking Status: Never smoker alcohol intake frequency: holidays/special occasions only Exam Narrative Exam Narrative: General: Cooperative, comfortable, well-developed, not in acute distress HEENT: Normocephalic, atraumatic, PERRLA, normal sclera, eyelids normal, Neck: Active full range of motion, atraumatic Chest: Normal to inspection, negative crepitus, no overlying erythema ecchymosis Respiratory: Normal respiratory effort, not in acute respiratory distress, clear to auscultation bilaterally negative cough, wheeze, tachypnea, rhonchi, rales Cardiology: Regular rate rhythm negative gallop, murmur, rubs GI/: Normal to inspection, soft, nonrigid, no tenderness to palpation, exam deferred MSK: Full range of active range of motion of all 4 extremities, atraumatic, there is no tenderness to palpation of any bony prominences, there is no gross deformity, Skin: No rashes lesions noted Neuro: NIH of 0 no focal deficits Alert awake oriented x3, moves all 4 extremities spontaneously, cranial nerves intact, able to answer all questions appropriately follows commands appropriately Psych: Cooperative, negative suicidal or homicidal ideations Initial Vital Signs Initial Vital Signs: Vital Signs Temperature 97.3 F L 01/16/25 16:09 Pulse Rate 83 01/16/25 16:09 Respiratory Rate 18 01/16/25 16:09 Blood Pressure 176/91 H 01/16/25 16:09 Pulse Oximetry 99 01/16/25 16:09 Oxygen Delivery Method Room Air 01/16/25 16:09 Course Orders Ordered: ED Orders 01/16/25 16:27 EKG-12 Lead Stat 01/16/25 16:40 CBC Auto Diff [Complete Blood Count AUTO DIFF] Stat CMP [Comprehensive Metabolic Panel] Stat ETOH [Ethanol (ETOH)] Stat 01/16/25 16:59 UA Complete [Urinalysis and Microscopic] Stat Urine Drug Screen, Rapid Stat Vital Signs Vital signs: Vital Signs - 8 hr 01/16/25 16:09 01/16/25 20:15 Temperature 97.3 F L Pulse Rate 83 87 Respiratory Rate 18 19 Blood Pressure 176/91 H 165/78 H Pulse Oximetry 99 99 Oxygen Delivery Method Room Air Room Air Medical Decision Making Differential Diagnosis Differential Diagnosis: Muscle spasm, lack of sleep, insomnia Lab Data 01/16/25 16:40 01/16/25 16:40 Labs: Lab Results 01/16/25 01/16/25 01/16/25 Range/Units 16:40 16:59 16:59 WBC 6.1 (4.5-11.0) X10^3/uL RBC 5.04 (4.5-5.9) X10^6/uL Hgb 15.7 (13.5-17.5) g/dL Hct 46.2 (41-53) % MCV 91.6 (80-100) fL MCH 31.1 (26-34) PG MCHC 33.9 (30-36) % RDW 12.7 (11.6-14.8) % Plt Count 148 L (150-400) X10^3/uL Neut % (Auto) 74.3 (50-75) % Lymph % (Auto) 21.1 L (25-40) % [place] % (Auto) 3.8 (3-14) % Eos % (Auto) 0.2 L (2-4) % Baso % (Auto) 0.6 (0-2) % Neut # (Auto) 4500 (1094-2695) /uL Lymph # (Auto) 1300 (5907-0468) /uL [place] # (Auto) 200 (0-900) /uL Eos # (Auto) 0 (0-450) /uL Baso # (Auto) 0 (0-100) /uL Sodium 137 (137-145) mmol/L Potassium 4.5 (3.4-5.1) mmol/L Chloride 98 (98-107) mmol/L Carbon Dioxide 19 L (22-32) mmol/L BUN 25 H (9-20) mg/dL Creatinine 1.01 (0.66-1.25) mg/dL Estimated GFR > 60 (>60) mL/min BUN/Creatinine Ratio 24.8 H (6-22) Glucose 178 H (80-110) mg/dL Calcium 9.3 (8.4-10.2) mg/dL Total Bilirubin 3.8 H (0.2-1.3) mg/dL AST 47 (17-59) IU/L ALT 37 (<50) IU/L Alkaline Phosphatase 74 (38-126) U/L Total Protein 8.6 H (6.3-8.2) g/dL Albumin 5.2 H (3.5-5.0) g/dL Globulin 3.4 (1.7-4.1) g/dL Albumin/Globulin Ratio 1.5 (1.0-2.8) Urine Color Yellow Urine Appearance Clear Urine pH 5.0 Normal (4.5-8.0) Ur Specific [place] >=1.030 H (1.000-1.035) Urine Protein 1+ H (Negative) Urine Glucose (UA) 3+ H (Negative) g/dL Urine Ketones 2+ H (NEGATIVE) Urine Occult Blood Trace-intact (Negative) Urine Nitrate Negative (Negative) Urine Bilirubin Negative (NEGATIVE) Urine Urobilinogen 0.2 (0.2) E.U./dL Ur Leukocyte Esterase Negative (NEGATIVE) Urine RBC 0-1/hpf (0-5/HPF) Urine WBC 0-1/hpf (0-5/HPF) Ur Squamous Epith Cells 0-1 /hpf (0-5/HPF) Urine Bacteria Occasional (0-1) (None) Urine Mucus 1+ H (Negative) Ur Culture Indicated? Cult not indicated Vol Urine Centrifuged 10ml (spun) U Opiates 300ng/mL cut Negative (Negative) Ur Oxycodone Screen Negative (Negative) Urine Methadone Screen Negative (Negative) Ur Barbiturates Screen Negative (Negative) U Tricyclic Antidepress Negative (Negative) Ur Phencyclidine Scrn Negative (Negative) Ur Amphetamines Screen Negative (Negative) U Methamphetamines Scrn Negative (Negative) Ur MDMA Scrn (Ecstasy) Negative (Negative) U Benzodiazepines Scrn Negative (Negative) Urine Cocaine Screen Negative (Negative) U Marijuana (THC) Screen Negative (Negative) Urine Specific [place] Normal (Normal) Ethyl Alcohol < 10 ( - 10) mg/dL Ur Creatinine Normal (Normal) Urine Dip Bedside Urine Glucose 1000 mg/dl Bedside Urine Bilirubin - Negative Bedside Urine Ketone +++ 80 Urine Specific [place] 1.030 Bedside Urine Occult Blood +/- Bedside Urine pH 5.5 Bedside Urine Protein + 30 Bedside Urine Urobilinogen - Negative Bedside Urine Nitrite - Negative Bedside Urine Leukocytes - Negative Esterase Point of care testing: Urine Dip Bedside Urine Glucose 1000 mg/dl Bedside Urine Bilirubin - Negative Bedside Urine Ketone +++ 80 Urine Specific [place] 1.030 Bedside Urine Occult Blood +/- Bedside Urine pH 5.5 Bedside Urine Protein + 30 Bedside Urine Urobilinogen - Negative Bedside Urine Nitrite - Negative Bedside Urine Leukocytes - Negative Esterase ECG Data Interpretation: Sinus 74 beats per minute, left axis deviation nonspecific ST changes no STEMI MDM Narrative Medical decision making narrative: 69-year-old male with past medical history of Lyme disease CHF with AICD insomnia comes into the ED from home for evaluation multiple complaints. He states that ever since he was taken off his Klonopin by his primary care doctor and started on trazodone he has been having multiple nonspecific symptoms including worsening insomnia, intermittent nausea, brain fog, also having muscle spasms of the right side of his back after he had a mechanical trip and fall several days ago now head strike, he states that he believes all his symptoms are due to the lack of sleep, he is also worried that his Farxiga and insulin which he has been taking for multiple years is contributing to his issues, patient on exam without any gross deformities no focal deficits EKG nonischemic urinalysis unremarkable lab work unremarkable most likely symptoms secondary to his insomnia, we will send patient home short dose of Valium antinausea meds instructed follow up with his primary care doctor, he verbalized understanding of this and agrees to being discharged home with outpatient follow up Discharge Plan Departure Patient Disposition: Home Clinical Impression: Insomnia Instructions: DI for Insomnia Activity Restrictions/Additional Instructions: Please follow-up with your primary care doctor Please read the discharge instructions sheet carefully and bring all papers to all doctor follow-up visits, as it may contain information that your doctor may want to see. Disease processes change and evolve, if your symptoms worsen or if you develop any new symptoms that are concerning to you please return for evaluation. Your evaluation today does not show any evidence of any life- threatening/serious illnesses requiring admission to the hospital or surgery. Please follow-up with your doctor for re-evaluation in approximately 1 day. Seek immediate medical attention for any worrisome symptoms. *If you do not have a primary care provider please contact the [facility] Resource line at [phone]. They will ask some questions about your medical history and help get you set up with a doctor in the community. Prescriptions: New diazepam [Valium] 5 mg tablet 5 mg PO BEDTIME PRN (Reason: muscle spasm) 5 Days Qty: 5 0RF ondansetron 4 mg tablet,disintegrating 4 mg PO Q8H PRN (Reason: nausea and vomiting) 5 Days Qty: 15 0RF No Action duloxetine [Cymbalta] 90 mg PO meclizine 12.5 mg tablet 12.5 mg PO BID-QID PRN (Reason: dizziness) Qty: 60 0RF trazodone 50 mg tablet 50 mg PO BEDTIME PRN (Reason: insomnia) Qty: 30 3RF methocarbamol 750 mg tablet See Rx Instructions PO BEDTIME PRN (Reason: muscle spasm) Qty: 60 2RF Rx Instructions: Take 1-2 tabs orally bedtime PRN; insulin aspart U-100 100 unit/mL (3 mL) insulin pen 10 unit SUBCUT QAC Qty: 30 1RF gabapentin 800 mg tablet 2,400 mg PO BEDTIME Qty: 90 2RF Hold Instructions: Pt no longer taking dapagliflozin propanediol [Farxiga] 10 mg tablet 10 mg PO DAILY Qty: 90 3RF (DME) Dexcom G7 Sensor Device See Rx Instructions .Route Qty: 9 1RF Rx Instructions: As directed, to be replaced once every 10 days insulin glargine U-300 conc [Toujeo Max U-300 SoloStar] 300 unit/mL (3 mL) insulin pen 70 unit SUBCUT DAILY Qty: 24 3RF duloxetine 30 mg capsule,delayed release(DR/EC) 30 mg PO DAILY Qty: 90 1RF Rx Instructions: patient takes a total of 90mg a day duloxetine 60 mg capsule,delayed release(DR/EC) 60 mg PO DAILY Qty: 90 1RF Rx Instructions: patient takes a total of 90mg a day furosemide 40 mg tablet 40 mg PO DAILY Hold Instructions: Pt no longer taking carvedilol 25 mg tablet 50 mg PO DAILY spironolactone 25 mg tablet 25 mg PO DAILY Hold Instructions: Pt no longer taking vitamin A 10,000 unit Capsule 10,000 unit PO DAILY losartan 25 mg tablet 25 mg PO DAILY thyroid (pork) [[employer] Thyroid] 60 mg tablet 60 mg PO DAILY cyanocobalamin (vitamin B-12) [Vitamin B-12] 2,500 mcg Tablet, Sublingual 2,500 mcg SUBLINGUAL DAILY ascorbate calcium (vitamin C) 500 mg Tablet 500 mg PO DAILY cholecalciferol (vitamin D3) [Vitamin D3] 5,000 unit Tablet 5,000 unit PO DAILY vitamin B complex [B-Complex] Tablet 1 tab PO DAILY magnesium 250 mg Tablet 250 mg PO DAILY acetaminophen 500 mg Capsule 500 mg PO Q4H PRN (Reason: Pain (Scale Score 4-6)) omega 5-wfh-rqf-fish oil [Fish Oil] 1,000 mg (120 mg-180 mg) Capsule 1 cap PO DAILY Probiotic 20 billion cell Capsule 20,000 mmu cells PO DAILY Referrals: Scott Lloyd MD [Primary Care Provider] - Stand Alone Forms: Patient Portal/API/Survey
== END 2025-01-16 21:55 | disposition home or self-care (01) ==
PROVIDERS: Emergency Medicine; Emergency Provider Student in an Organized Health Care Education/Training Program; PCP Family Medicine
DX: G47.00 Insomnia, unspecified (principal); E11.9 Type 2 diabetes mellitus without complications; M62.830 Muscle spasm of back; R11.0 Nausea; Z95.810 Presence of automatic (implantable) cardiac defibrillator
CPT/HCPCS: 80053; 80305; 80320; 81001; 81003; 85025; 93005; 99282; 99284

== ENCOUNTER → 2025-03-02 13:43 | Outpatient (CLI) | payer BC, SELFPAY ==
[2025-03-02 14:10] LABS: Hematocrit 39.5 % (41-53); Hemoglobin 13.4 g/dL (13.5-17.5); Mean Corpuscular HGB Conc 33.8 % (30-36); Mean Corpuscular Hemoglobin 30.9 PG (26-34); Mean Corpuscular Volume 91.3 fL (80-100); Platelet Count 156 X10^3/uL (150-400); Red Blood Cell Count 4.33 X10^6/uL (4.5-5.9); Red Cell Distribution Width 12.9 % (11.6-14.8); White Blood Cell Count 8.6 X10^3/uL (4.5-11.0)
[2025-03-02 14:14] LABS: Hemoglobin A1C% w Est Avg Glu 7.6 % (4.0-6.0)
[2025-03-02 14:39] LABS: Microalbumin Urine Random 1.6 mg/dL (0-1.6)
[2025-03-02 14:46] LABS: Alanine Aminotransferase 32 IU/L (<50); Albumin 4.3 g/dL (3.5-5.0); Albumin Globulin Ratio 1.7 (1.0-2.8); Alkaline Phosphatase 113 U/L (38-126); Aspartate Aminotransferase 31 IU/L (17-59); BUN Creatinine Ratio 17.9 (6-22); Blood Urea Nitrogen 20 mg/dL (9-20); Calcium 9.2 mg/dL (8.4-10.2); Carbon Dioxide 30 mmol/L (22-32); Chloride 103 mmol/L (98-107); Cholesterol 160 mg/dL (140-199); Estimated Glomerular Filt Rate > 60 mL/min (>60); Globulin 2.5 g/dL (1.7-4.1); Glucose 191 mg/dL (80-110); HDL Cholesterol 41 mg/dL (40-60); HEMOLYSIS < 15 (0-50); LDL Cholesterol Calculated 98 mg/dL (<100); Potassium 4.2 mmol/L (3.4-5.1); Sodium 141 mmol/L (137-145); Total Protein 6.8 g/dL (6.3-8.2); Triglycerides 107 mg/dL (35-150)
== END ==
PROVIDERS: PCP Family Medicine; Referring Provider Family Medicine; Visit Provider Family Medicine
DX: I10 Essential (primary) hypertension (principal); E11.9 Type 2 diabetes mellitus without complications; E78.5 Hyperlipidemia, unspecified
CPT/HCPCS: 36415; 80053; 80061; 82043; 82570; 83036; 85027

== ENCOUNTER → 2025-03-08 15:24 | Outpatient (CLI) | payer BC, SELFPAY ==
--- NOTE | 2025-03-08 16:57 | DI.RAD.S_ITS ---
PROCEDURE: XR CHEST 2V INDICATIONS: Increasing cough + sputum, hemoptysis x4 months TECHNIQUE: 2 views of the chest were acquired. COMPARISON: [facility], CR, XR CHEST 2V, 11/30/2024, 16:04. FINDINGS: Heart, mediastinum and pulmonary vascular: Heart is normal in size and configuration. AICD remain in stable satisfactory position without complication. Mediastinum is unremarkable. Pulmonary vascular is normal. Lungs: Calcified granuloma, in the right upper lobe , has been stable since 2019. Other tiny calcified granulomas also appreciated No new pulmonary abnormality. Pleural spaces: Normal-no effusions or pneumothorax. Bones and soft tissues: Moderate degenerative disc disease seen throughout the thoracic spine IMPRESSION: No acute cardiopulmonary disease-stable. Dictated by: Prashant Lorenzo M.D. on 03/09/2025 at 12:48 Approved by: Prashant Lorenzo M.D. on 03/09/2025 at 12:50
[2025-03-08 17:33] LABS: HEMOLYSIS < 15 (0-50); Iron 54 ug/dL (49-181)
[2025-03-08 17:44] LABS: Percent Iron Saturation 18 % (20-50); Total Iron Binding Capacity 299 ug/dL (261-462); Transferrin 248 mg/dL (206-381)
[2025-03-08 18:09] LABS: Ferritin 187 ng/mL (18-464)
[2025-03-12 00:07] LABS: QuantiFERON Mitogen Value >10.00 IU/mL (.); QuantiFERON Nil Value 0.04 IU/mL (.); QuantiFERON TB Gold Plus Negative (Negative); QuantiFERON TB1 Ag Value 0.05 IU/mL (.); QuantiFERON TB2 Ag Value 0.05 IU/mL (.)
== END ==
PROVIDERS: PCP Family Medicine; Referring Provider Family Medicine; Visit Provider Family Medicine
DX: D64.9 Anemia, unspecified (principal); R05.8 Other specified cough; R04.2 Hemoptysis
CPT/HCPCS: 36415; 71046; 82728; 83540; 83550; 86480

== ENCOUNTER → 2025-03-15 13:47 | Outpatient (CLI) | payer BC, SELFPAY | PROVIDERS: PCP Family Medicine; Referring Provider Family Medicine; Visit Provider Family Medicine | DX: R05.9 Cough, unspecified (principal); R04.2 Hemoptysis | CPT/HCPCS: 87070; 87077; 87147; 87186; 87205 ==